=== PATIENT | male | born 1945 | race Caucasian/White ===

== ENCOUNTER 2018-01-17 17:00 | Emergency (ER) | payer OTHER ==
--- NOTE | 2018-01-17 17:50 | RAD REPORT ---
EXAM DESCRIPTION: CT - Head Brain Wo Cont - 01/17/2018 5:32 pm CLINICAL HISTORY: Syncope COMPARISON: January 2017 TECHNIQUE: Computed axial tomography of the head was obtained. IV contrast was not requested. All CT scans are performed using dose optimization technique as appropriate and may include automated exposure control or mA/KV adjustment according to patient size. FINDINGS: An intracranial bleed is not seen . The ventricles remain prominent. Cortical atrophy is seen. No extra-axial fluid collection is noted. Fluid within the sinuses/ mastoids is not seen. IMPRESSION: Prominence of the ventricles may be related to white matter atrophy. Normal pressure hyd rocephalus could also have this appearance should be correlated clinically.
[2018-01-17 17:51] LABS: Protime INR 0.98
--- NOTE | 2018-01-17 17:51 | RAD REPORT ---
EXAM DESCRIPTION: Rosita Single View01/17/2018 5:43 pm CLINICAL HISTORY: Chest pain COMPARISON: January 2017 FINDINGS: The lungs appear clear of acute infiltrate. The heart is normal size IMPRESSION: No acute abnormalities displayed
[2018-01-17 17:59] LABS: Bicarbonate 23 mEq/L (21-31); Glucose Level 98 mg/dL (65-120); Potassium 3.7 mEq/L (3.6-5.0); Sodium Level 136 mEq/L (135-145)
[2018-01-17 18:05] LABS: ALT/SGPT 71 IU/L (10-60); AST/SGOT 84 IU/L (10-42); Albumin 4.4 g/dL (3.2-5.5); Alkaline Phosphatase 69 IU/L (42-121); BUN Blood Urea Nitrogen 16 mg/dL (6-20); Bilirubin Direct 0.3 mg/dL (0-0.2); Bilirubin Total 1.1 mg/dL (0.3-1.2); Creatine Phosphokinase 374 IU/L (22-269); Magnesium 1.9 mg/dL (1.8-2.5)
[2018-01-17 18:15] LABS: Absolute Lymphocytes (CBC) 1.2 K/uL (0.7-4.9); Absolute Monocytes 0.4 K/uL (0.1-1.3); Absolute Neutrophil 2.8 K/uL (1.8-8.0); Basophils % 1.3 % (0-1.3); Eosinophils % 2.3 % (0-4.4); Hematocrit 45.6 % (39.6-49.0); Lymphocytes % 26.8 % (15.3-44.8); MCH 31.4 pg (27.0-35.0); MCV 91.5 fL (80-100); MPV 8.3 fL (7.6-11.3); Monocytes % 8.2 % (3.3-12.3); RBC Red Blood Cell Count 4.99 M/uL (4.33-5.43)
[2018-01-17 18:18] LABS: Alcohol Serum/Plasma 171 mg/dl
[2018-01-17] MEDS ORDERED: NA CHLORIDE 0.9% 1,000 ML ONE (18:30)
--- NOTE | 2018-01-17 19:02 | EDPHYS ---
Physician Documentation [facility] Name: Jasson Craig Jr Age: 72 yrs Sex: Male : 1945 Arrival Date: 01/17/2018 Time: 17:03 Bed 5 Private MD: ED Physician James Langston HPI: 01/17 17:22 This 72 yrs old Male presents to ER via EMS with complaints of Fall Injury. jr8 17:22 Details of fall: The patient fell from an upright position, while standing. Onset: The jr8 symptoms/episode began/occurred acutely, today. Associated injuries: The patient sustained injury to the head. Severity of symptoms: At their worst the symptoms were moderate, in the emergency department the symptoms have resolved. The patient has not experienced similar symptoms in the past. The patient has not recently seen a physician. Nursing staff here stated that patient had told EMS that he had not eaten today. Had a couple of glasses of wine for lunch. Had gone to [employer] for something and on the way out passed out. Patient stated that all he remembers is walking out. Next thing he knew he was on the ground. Denies any s/s prior to syncope. Denies any pain or any other s/s now in ED . Historical: - Allergies: 17:14 No Known Drug Allergies; jl7 - Home Meds: 17:14 None [Active]; jl7 - PMHx: 17:14 None; jl7 - PSHx: 17:14 None; jl7 - Immunization history:: Adult Immunizations up to date, Last tetanus immunization: > 10 years ago. - Social history:: Smoking status: Patient/guardian denies using tobacco. - Ebola Screening: : No symptoms or risks identified at this time. ROS: 17:22 Eyes: Negative for injury, pain, redness, and discharge, ENT: Negative for injury, jr8 pain, and discharge, Neck: Negative for injury, pain, and swelling, Cardiovascular: Negative for chest pain, palpitations, and edema, Respiratory: Negative for shortness of breath, cough, wheezing, and pleuritic chest pain, Abdomen/GI: Negative for abdominal pain, nausea, vomiting, diarrhea, and constipation, Back: Negative for injury and pain, MS/Extremity: Negative for injury and deformity, Skin: Negative for injury, rash, and discoloration. 17:22 Neuro: Positive for syncope, Negative for altered mental status, dizziness, gait disturbance, headache, hearing loss, numbness, seizure activity, speech changes, tingling, tinnitus, tremor, visual changes, weakness. Exam: 17:22 Eyes: Pupils equal round and reactive to light, extra-ocular motions intact. Lids and jr8 lashes normal. Conjunctiva and sclera are non-icteric and not injected. Cornea within normal limits. Periorbital areas with no swelling, redness, or edema. ENT: Nares patent. No nasal discharge, no septal abnormalities noted. Tympanic membranes are normal and external auditory canals are clear. Oropharynx with no redness, swelling, or masses, exudates, or evidence of obstruction, uvula midline. Mucous membranes moist. Neck: Trachea midline, no thyromegaly or masses palpated, and no cervical lymphadenopathy. Supple, full range of motion without nuchal rigidity, or vertebral point tenderness. No Meningismus. Chest/axilla: Normal chest wall appearance and motion. Nontender with no deformity. No lesions are appreciated. Cardiovascular: Regular rate and rhythm with a normal S1 and S2. No gallops, murmurs, or rubs. Normal PMI, no JVD. No pulse deficits. Respiratory: Lungs have equal breath sounds bilaterally, clear to auscultation and percussion. No rales, rhonchi or wheezes noted. No increased work of breathing, no retractions or nasal flaring. Abdomen/GI: Soft, non-tender, with normal bowel sounds. No distension or tympany. No guarding or rebound. No evidence of tenderness throughout. Back: No spinal tenderness. No costovertebral tenderness. Full range of motion. Skin: Warm, dry with normal turgor. Normal color with no rashes, no lesions, and no evidence of cellulitis. MS/ Extremity: Pulses equal, no cyanosis. Neurovascular intact. Full, normal range of motion. Neuro: Awake and alert, GCS 15, oriented to person, place, time, and situation. Cranial nerves II-XII grossly intact. Motor strength 5/5 in all extremities. Sensory grossly intact. Cerebellar exam normal. Normal gait. 17:22 Head/face: Noted is abrasion(s), that are mild, of the back of scalp. Vital Signs: 17:10 BP 143 / 109; Pulse 85; Resp 18 S; Pulse Ox 98% on R/A; Weight 88.9 kg (R); Height 6 jl7 ft. 0 in. (182.88 cm) (R); Pain 4/10; 17:57 BP 124 / 85; Pulse 81; Resp 17; Pulse Ox 97% on R/A; tw2 17:10 Body Mass Index 26.58 (88.90 kg, 182.88 cm) jl7 MDM: 17:10 Patient medically screened. jr8 19:00 Data reviewed: vital signs, nurses notes, lab test result(s), EKG, radiologic studies, jr8 CT scan, plain films, and as a result, I will discharge patient. Data interpreted: Pulse oximetry: on room air is 97 %. Interpretation: normal. Counseling: I had a detailed discussion with the patient and/or guardian regarding: the historical points, exam findings, and any diagnostic results supporting the discharge/admit diagnosis, lab results, radiology results, the need for outpatient follow up, a family practitioner, to return to the emergency department if symptoms worsen or persist or if there are any questions or concerns that arise at home. ED course: Patient has remained stable while in ED. No AMS. Feels back to normal. More then likely combination of alcohol and not eating. here to pick him up. To come back if worse . 01/17 17:21 Order name: Basic Metabolic Panel; Complete Time: 18:21 01/17 17:21 Order name: BNP; Complete Time: 18:08 01/17 17:21 Order name: CBC with Diff; Complete Time: 18:38 01/17 17:21 Order name: LFT's; Complete Time: 18:21 01/17 17:21 Order name: Magnesium; Complete Time: 18:21 01/17 17:21 Order name: PT-INR; Complete Time: 18:08 01/17 17:21 Order name: Ptt, Activated; Complete Time: 18:08 01/17 17:21 Order name: Troponin (emerg Dept Use Only); Complete Time: 18:08 01/17 17:21 Order name: XRAY Chest (1 view); Complete Time: 17:56 01/17 17:21 Order name: ETOH Level; Complete Time: 18:21 01/17 17:21 Order name: CPK; Complete Time: 18:21 [facility] 01/17 17:21 Order name: CT Head Brain wo Cont; Complete Time: 17:56 [facility] 01/17 18:28 Order name: Urine Dipstick--Ancillary (enter results); Complete Time: 21:14 01/17 17:21 Order name: EKG; Complete Time: 17:22 [facility] 01/17 17:21 Order name: Cardiac monitoring; Complete Time: 17:27 [facility] 01/17 17:21 Order name: EKG - Nurse/Tech; Complete Time: 17:27 [facility] 01/17 17:21 Order name: IV Saline Lock; Complete Time: 17:34 [facility] 01/17 17:21 Order name: Labs collected and sent; Complete Time: 17:34 [facility] 01/17 17:21 Order name: O2 Per Protocol; Complete Time: 17:27 [facility] 01/17 17:21 Order name: O2 Sat Monitoring; Complete Time: 17: Administered Medications: 18:30 Drug: NS 0.9% 1000 ml Route: IV; Rate: 1000 ml; Site: right antecubital; tw2 Point of Care Testing: Blood Glucose: 17:17 Blood Glucose: 68 mg/dL; jb1 Ranges: Critical Glucose Levels:Adult <50 mg/dl or >400 mg/dl <40 mg/dl or >180 mg/dl Disposition: 01/17/18 19:02 Discharged to Home. Impression: Syncope and collapse, Alcohol use, unspecified with intoxication. - Condition is Stable. - Discharge Instructions: Syncope. - Medication Reconciliation Form, Thank You Letter, Antibiotic Education, Prescription Opioid Use form. - Follow up: Private Physician; When: 2 - 3 days; Reason: Recheck today's complaints, Continuance of care, Re-evaluation by your physician. - Problem is new. - Symptoms have improved. Addendum: 01/22/2018 11:15 Co-signature as Attending Physician, James Langston MD. r n Signatures: Dispatcher [employer] EDJames Márquez MD MD rn Roszak, Josh, PA PA jr8 Fawn Thompson RN RN ak1 Aleyda Lane RN RN tw2 Libra Grant RN RN jl7 Corrections: (The following items were deleted from the chart) 01/17 19:23 19:02 01/17/2018 19:02 Discharged to Home. Impression: Syncope and collapse; Alcohol ak1 use, unspecified with intoxication. Condition is Stable. Forms are Medication Reconciliation Form, Thank You Letter, Antibiotic Education, Prescription Opioid Use. Follow up: Private Physician; When: 2 - 3 days; Reason: Recheck today's complaints, Continuance of care, Re-evaluation by your physician. Problem is new. Symptoms have improved. jr8
--- NOTE | 2018-01-17 19:02 | ER ---
Nurse's Notes [facility] Name: Jasson Craig Jr Age: 72 yrs Sex: Male : 1945 Arrival Date: 01/17/2018 Time: 17:03 Bed 5 Private MD: Diagnosis: Syncope and collapse;Alcohol use, unspecified with intoxication Presentation: 01/17 17:04 Presenting complaint: EMS states: Pt fell in [employer] parking lot, pt does not remember jl7 what made him fall, pt does not remember going back into [employer]. Pt reported having a couple glasses of wine at lunch but he hasn't had anything to eat. came to the scene and reported pt is at baseline. Care prior to arrival: None. Mechanism of Injury: Fall from standing position. Trauma event details: Injury occurred in the [facility], Injury occurred: in a public building. Injury occurred: January 17, 2018 Injury occurred at: 16:30. 17:04 Acuity: SERVANDO 3 jl7 17:04 Method Of Arrival: EMS: [facility] jl7 17:15 Transition of care: patient was not received from another setting of care. Onset of jl7 symptoms was January 17, 2018. Risk Assessment: Do you want to hurt yourself or someone else? Patient reports no desire to harm self or others. Initial Sepsis Screen: Does the patient meet any 2 criteria? No. Patient's initial sepsis screen is negative. Does the patient have a suspected source of infection? No. Patient's initial sepsis screen is negative. Trauma Activation: Not Applicable Physician: ED Physician; Name: ; Notified At: ; Arrived At: Physician: General Surgeon; Name: ; Notified At: ; Arrived At: Physician: Radiology; Name: ; Notified At: ; Arrived At: Physician: Respiratory; Name: ; Notified At: ; Arrived At: Physician: Lab; Name: ; Notified At: ; Arrived At: Historical: - Allergies: 17:14 No Known Drug Allergies; jl7 - Home Meds: 17:14 None [Active]; jl7 - PMHx: 17:14 None; jl7 - PSHx: 17:14 None; jl7 - Immunization history:: Adult Immunizations up to date, Last tetanus immunization: > 10 years ago. - Social history:: Smoking status: Patient/guardian denies using tobacco. - Ebola Screening: : No symptoms or risks identified at this time. Screenin:19 Abuse screen: Denies threats or abuse. Denies injuries from another. Nutritional jl7 screening: No deficits noted. Tuberculosis screening: No symptoms or risk factors identified. Fall Risk Fall in past 12 months (25 points). IV access (20 points). Total Luis Fall Scale indicates High Risk Score (45 or more points). Fall prevention measures have been instituted. Side Rails Up X 2 Placed Close to Nursing Station Frequent Obs/Assessments Occuring Family Present and informed to notify staff if the need to leave the bedside As available patient and family educated on Fall Prevention Program and Strategies. Assessment: 17:04 General: Appears in no apparent distress. uncomfortable, Behavior is cooperative, jl7 crying. Pain: Complains of pain in scalp Pain does not radiate. Pain currently is 4 out of 10 on a pain scale. Is continuous. Neuro: Level of Consciousness is awake, alert, obeys commands, Oriented to person, place, time, situation, Appropriate for age. EENT: No signs and/or symptoms were reported regarding the EENT system. Cardiovascular: Patient's skin is warm and dry. Respiratory: Airway is patent Respiratory effort is even, unlabored, Respiratory pattern is regular, symmetrical. GI: No signs and/or symptoms were reported involving the gastrointestinal system. : No signs and/or symptoms were reported regarding the genitourinary system. Derm: Skin is pink, warm \T\ dry. Musculoskeletal: No signs and/or symptoms reported regarding the musculoskeletal system. Injury Description: Laceration sustained to scalp is contaminated, superficial, 0.5 to 2.5 cm long, was sustained 30-60 minutes ago. a small amount of bleeding noted at this time. 19:23 Reassessment: Patient appears in no apparent distress at this time. pt A\T\OX4 with ak1 steady gait at discharge. pt called his to pick him up. Vital Signs: 17:10 BP 143 / 109; Pulse 85; Resp 18 S; Pulse Ox 98% on R/A; Weight 88.9 kg (R); Height 6 jl7 ft. 0 in. (182.88 cm) (R); Pain 4/10; 17:57 BP 124 / 85; Pulse 81; Resp 17; Pulse Ox 97% on R/A; tw2 17:10 Body Mass Index 26.58 (88.90 kg, 182.88 cm) jl7 ED Course: 17:03 Patient arrived in ED. jl7 17:07 Triage completed. jl7 17:10 Ezequiel Forman PA is PHCP. jr8 17:10 James Langston MD is Attending Physician. jr8 17:10 Arm band placed on right wrist. jl7 17:19 Patient has correct armband on for positive identification. Placed in gown. Bed in low jl7 position. Call light in reach. Side rails up X 1. personnel monitor on. Pulse ox on. NIBP on. Warm blanket given. 17:[address] 2 17:32 CT completed. Patient tolerated procedure well. Patient moved back from CT. 2 17:33 CT Head Brain wo Cont In Process Unspecified. EDMS 17:33 Libra Grant RN is Primary Nurse. jl7 17:40 EKG done, by information technology account manager. reviewed by Ezequiel BENÍTEZ. 3 17:43 X-ray completed. Patient tolerated procedure well. Patient moved back from radiology. 2 17:43 XRAY Chest (1 view) In Process Unspecified. EDMS Administered Medications: 18:30 Drug: NS 0.9% 1000 ml Route: IV; Rate: 1000 ml; Site: right antecubital; tw2 Point of Care Testing: Blood Glucose: 17:17 Blood Glucose: 68 mg/dL; jb1 Ranges: Outcome: 19:02 Discharge ordered by . jr8 19:22 Discharged to home ambulatory, with family. ak1 19:22 Condition: good 19:22 Discharge instructions given to patient, family, Instructed on discharge instructions, follow up and referral plans. Demonstrated understanding of instructions, follow-up care. 19:23 Patient left the ED. ak1 Signatures: Dispatcher [employer] EDMS Nithin Orozco jb1 Ezequiel Forman PA PA jr8 Fawn Thompson RN RN ak1 Aleyda Lane RN RN tw2 Libra Grant RN RN jl7 Melissa Grewal 2 Rayne Bhat bb2 Jennifer Vera 3 Corrections: (The following items were deleted from the chart) 17:19 17:04 Presenting complaint: EMS states: Pt fell in [employer] parking lot, pt does not jl7 remember what made him fall, pt does not remember going back into [employer]. jl7
[2018-01-17 19:19] LABS: Urine Blood NEGATIVE (NEG); Urine Glucose NEGATIVE (NEG); Urine Protein NEGATIVE (NEG); Urine pH 5.5 (5.0-7.0)
--- NOTE | 2018-01-18 06:16 | EKG ---
Test Date: 2018-01-17 Test Time: 17:12:05 Binder Caser: [place] MEASUREMENT RESULTS: Intervals: Rate: 82 MS: 170 QRSD: 94 QT: 378 QTc: 441 [place]: P: 45 MS: 170 QRS: -51 T: 24 INTERPRETIVE STATEMENTS: Normal sinus rhythm Left anterior fascicular block Abnormal ECG Compared to ECG 01/18/2017 08:45:43 Left anterior fascicular block now present Ventricular premature complex(es) no longer present Left-axis deviation no longer present Electronically Signed On 01-18-18 06:15:28 CDT by Celestino Blanco
== END 2018-01-17 19:23 | disposition home or self-care (01) ==
LOC: ER 17:00
DX: F10.929 Alcohol use, unspecified with intoxication, unspecified (principal); W18.39XA Other fall on same level, initial encounter; Y93.89 Activity, other specified; Y92.9 Unspecified place or not applicable
CPT/HCPCS: 36415; 70450; 71045; 80048; 80076; 80320; 81003; 82550; 82962; 83735; 83880; 84484; 85025; 85610; 85730; 93005; 99285; J7030

== ENCOUNTER 2023-03-16 17:57 | Emergency (ER) | payer OTHER ==
--- OUTSIDE RECORDS SUMMARY | 2023-03-16 18:02 | XMS REPORT | Continuity of Care Document ---
:1945 Author Organization [facility] t Address [address] [place] [address] [address] [place] [address] Care Team Providers Name Role Phone Massiel Umaña MD Primary Care Physician [phone] MASSIEL UMAÑA Attending Clinician Unavailable Massiel Umaña MD Attending Clinician Doctor Unassigned, [place] Attending Clinician Unavailable Lab, Ang - Db Attending Clinician Unavailable Gramm COMPLIANCE ATTORNEY, Ariadna A Attending Clinician GRAMM ARIADNA A Attending Clinician Unavailable Pob, Adc Lab Main Attending Clinician Unavailable Abiel Carson MD Attending Clinician ABIEL CARSON Attending Clinician Unavailable SHIRLENE PARKER Attending Clinician Unavailable Shirlene Parker MD Attending Clinician Room, [facility] Uro Procedure Attending Clinician Unavailable Toma Quintanilla RN Attending Clinician Unavailable APOLLO RAMIREZ Attending Clinician Unavailable Yumiko Matthews Attending Clinician Compa Qureshi MD Attending Clinician Apollo Ramirez DO Attending Clinician Lab, Adc Fam Pob I Attending Clinician Unavailable QUOC ROBERTSON Attending Clinician Unavailable 2, Adc Lab Attending Clinician Unavailable COMPA QURESHI Admitting Clinician Unavailable Compa Qureshi MD Admitting Clinician Payers Payer Name Policy Type Policy Number Effective Date Expiration Date S ource [facility] [id number] 2020 [facility] [place] 00:00:00 PPO Problems Condition Condition Condition Status Onset Resolution Last Treating Co mments Source Name Details Category Date Date Treatment Clinician Date PVC PVC Disease Active Univers (premature (premature 5-21 [place] [facility] contractio contractio Br anch n) n) 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 Moderate 5-21 ity of protein protein 00:00: [place] calorie calorie 00 Medical malnutriti malnutriti Br anch on on PVC PVC Disease Active Univers (premature (premature 5-21 [place] contractio contractio Br anch n) n) NSVT NSVT Disease Active Univers (nonsustai (nonsustai 5-21 it y of [place] 00:00: [place] ventricula ventricula 00 Nm dical r r Branch tachycardi tachycardi a) a) Hypokalemi Hypokalemi Disease Active U nivers a a 5-21 ity of 00:00: [place] 00 Medical Branch UTI UTI Disease Active Univers (urinary (urinary 5-21 ity of tract tract 00:00: [place] infection) infection) 00 Nm dical Branch STARLA (acute STARLA (acute Disease Active U nivers kidney kidney 5-20 ity of injury) injury) 00:00: [place] 00 Medical Branch Allergies, Adverse Reactions, Alerts Allergy Allergy Status Severity Reaction(s) Onset Inactive Treating Comm ents Source Name Type Date Date Clinician NO KNOWN Drug Active Univers ALLERGIE Class ity of S [facility] Social History Social Habit Start Date Stop Date Quantity Comments Source Gender identity Universit y of [facility] Sexual orientation Univer sity [facility] History of Social 2023-03-12 2023-03-12 Univers ity of function 00:00:00 00:00:00 [facility] Tobacco use and 2023-03-12 2023-03-12 Smokeless Universit y of exposure 00:00:00 00:00:00 tobacco [facility]user [facility] intake 2023-03-12 2023-03-12 2 /d University 00:00:00 00:00:00 [facility] Exposure to 2022-12-01 2022-12-11 Not sure [facility] SARS-CoV-2 (event) 00:00:00 14:53:00 [facility] Sex [birth year] Universit y of 00:00:00 00:00:00 [facility] Smoking Status Start Date Stop Date Source Never smoked tobacco [facility] Medications Ordered Filled Start Stop Current Ordering Indication Dosage Frequency Signature Comments Components Source Medication Medication Date Date Medication? Clinician (SIG) Name Name MEMANTINE 5 2022-0 Yes [id number] TAKE ONE Univers mg tablet 7-26 TABLET BY ity o f 00:00: MOUTH [place] TWICE A Medical DAY Branch DONEPEZIL 2022-0 Yes [id number] TAKE ONE Univers 10 mg 7-26 TABLET BY ity of tablet 00:00: MOUTH AT [place] [facility] Medical Branch MEMANTINE 5 2022-0 Yes [id number] TAKE ONE Univers mg tablet 7-26 TABLET BY ity o f 00:00: MOUTH [place] TWICE A Medical DAY Branch DONEPEZIL 2022-0 Yes [id number] TAKE ONE Univers 10 mg 7-26 TABLET BY ity of tablet 00:00: MOUTH AT [place] [facility] Medical Branch MEMANTINE 5 2022-0 Yes [id number] TAKE ONE Univers mg tablet 7-26 TABLET BY ity o f 00:00: MOUTH [place] TWICE A Medical DAY Branch DONEPEZIL 2022-0 Yes [id number] TAKE ONE Univers 10 mg 7-26 TABLET BY ity of tablet 00:00: MOUTH AT [place] [facility] Medical Branch MEMANTINE 5 2022-0 Yes [id number] TAKE ONE Univers mg tablet 7-26 TABLET BY ity o f 00:00: MOUTH [place] [address] TWICE A Medical DAY Branch DONEPEZIL 2022-0 Yes [id number] TAKE ONE Univers 10 mg 7-26 TABLET BY ity of tablet 00:00: MOUTH AT [address] Medical Branch mirtazapine 2022-0 Yes [id number] 15mg Take 1 Univers 15 mg 7-14 tablet by ity of tablet 00:00: mouth at [place] [address] bedtime. Medical Branch mirtazapine 2022-0 Yes [id number] 15mg Take 1 Univers 15 mg 7-14 tablet by ity of tablet 00:00: mouth at [place] [address] bedtime. Medical Branch mirtazapine 2022-0 Yes [id number] 15mg Take 1 Univers 15 mg 7-14 tablet by ity of tablet 00:00: mouth at [place] [address] bedtime. Medical Branch mirtazapine 2022-0 Yes [id number] 15mg Take 1 Univers 15 mg 7-14 tablet by ity of tablet 00:00: mouth at [place] [address] bedtime. Medical Branch mirtazapine 2022-0 Yes [id number] 15mg Take 1 Univers 15 mg 7-14 tablet by ity of tablet 00:00: mouth at [place] [address] bedtime. Medical Branch MIRTAZAPINE 2022-0 Yes [id number] TAKE ONE Univers 15 mg 6-27 TABLET BY ity of tablet 00:00: MOUTH AT [address] Medical Branch DONEPEZIL 2022-0 Yes [id number] TAKE ONE Univers 10 mg 6-27 TABLET BY ity of tablet 00:00: MOUTH AT [address] Medical Branch MEMANTINE 5 2022-0 Yes [id number] TAKE ONE Univers mg tablet 6-27 TABLET BY ity o f 00:00: MOUTH [place] [address] TWICE A Medical DAY Branch DONEPEZIL 2022-0 Yes [id number] TAKE ONE Univers 10 mg 6-27 TABLET BY ity of tablet 00:00: MOUTH AT [address] Medical Branch MEMANTINE 5 2022-0 Yes [id number] TAKE ONE Univers mg tablet 6-27 TABLET BY ity o f 00:00: MOUTH [place] [address] TWICE A Medical DAY Branch DONEPEZIL 3-0 3- No [id number] TAKE ONE Univers 10 mg 6-27 07-26 TABLET BY ity of tablet 00:00: 00:00 MOUTH AT [place] 00 :00 BEDTIME Medical Branch MEMANTINE 5 3-0 3- No [id number] TAKE ONE Univers mg tablet 6-27 07-26 TABLET BY ity of 00:00: 00:00 MOUTH [place] 00 :00 TWICE A Medical DAY Branch MIRTAZAPINE 2023-0 3- No [id number] TAKE ONE Univers 15 mg 6-27 07-14 TABLET BY ity of tablet 00:00: 00:00 MOUTH AT [place] 00 :00 BEDTIME Medical Branch MIRTAZAPINE 2022-0 Yes [id number] TAKE ONE Univers 15 mg 5-29 TABLET BY ity of tablet 00:00: MOUTH AT [place] 00 BEDTIME Medical Branch DONEPEZIL 0 Yes [id number] TAKE ONE Univers 10 mg 5-29 TABLET BY ity of tablet 00:00: MOUTH AT [place] 00 BEDTIME Medical Branch MEMANTINE 5 2022-0 Yes [id number] TAKE ONE Univers mg tablet 5-29 TABLET BY ity o f 00:00: MOUTH [place] 00 TWICE A Medical DAY Branch MIRTAZAPINE 2022-0 2022- No [id number] TAKE ONE Univers 15 mg 5-29 06-27 TABLET BY ity of tablet 00:00: 00:00 MOUTH AT [place] 00 :00 BEDTIME Medical Branch DONEPEZIL 2022-0 2022- No [id number] TAKE ONE Univers 10 mg 5-29 06-27 TABLET BY ity of tablet 00:00: 00:00 MOUTH AT [place] 00 :00 BEDTIME Medical Branch MEMANTINE 5 2022-0 2022- No [id number] TAKE ONE Univers mg tablet 5-29 -27 TABLET BY ity of 00:00: 00:00 MOUTH [place] 00 :00 TWICE A Medical DAY Branch albuterol Yes [id number] 2{puff} Inhale 2 Univers 90 5-08 Puffs ity of mcg/actuati 00:00: every 6 [place] on inhaler 00 (six) Medical hours as Branch needed for Wheezing, Shortness of Breath or Bronchospa sm. albuterol Yes [id number] 2{puff} Inhale 2 Univers 90 5-08 Puffs ity of mcg/actuati 00:00: every 6 [place] on inhaler 00 (six) Medical hours as Branch needed for Wheezing, Shortness of Breath or Bronchospa sm. albuterol Yes [id number] 2{puff} Inhale 2 Univers 90 5-08 Puffs ity of mcg/actuati 00:00: every 6 [place] on inhaler 00 (six) Medical hours as Branch needed for Wheezing, Shortness of Breath or Bronchospa sm. albuterol Yes [id number] 2{puff} Inhale 2 Univers 90 5-08 Puffs ity of mcg/actuati 00:00: every 6 [place] on inhaler 00 (six) Medical hours as Branch needed for Wheezing, Shortness of Breath or Bronchospa sm. albuterol Yes [id number] 2{puff} Inhale 2 Univers 90 5-08 Puffs ity of mcg/actuati 00:00: every 6 [place] on inhaler 00 (six) Medical hours as Branch needed for Wheezing, Shortness of Breath or Bronchospa sm. albuterol Yes [id number] 2{puff} Inhale 2 Univers 90 5-08 Puffs ity of mcg/actuati 00:00: every 6 [place] on inhaler 00 (six) Medical hours as Branch needed for Wheezing, Shortness of Breath or Bronchospa sm. albuterol Yes [id number] 2{puff} Inhale 2 Univers 90 5-08 Puffs ity of mcg/actuati 00:00: every 6 [place] on inhaler 00 (six) Medical hours as Branch needed for Wheezing, Shortness of Breath or Bronchospa sm. albuterol Yes [id number] 2{puff} Inhale 2 Univers 90 5-08 Puffs ity of mcg/actuati 00:00: every 6 [place] on inhaler 00 (six) Medical hours as Branch needed for Wheezing, Shortness of Breath or Bronchospa sm. albuterol Yes [id number] 2{puff} Inhale 2 Univers 90 5-08 Puffs ity of mcg/actuati 00:00: every 6 [place] on inhaler 00 (six) Medical hours as Branch needed for Wheezing, Shortness of Breath or Bronchospa sm. MEMANTINE 5 2022-0 Yes [id number] TAKE ONE Univers mg tablet 5-01 TABLET BY ity o f 00:00: MOUTH [place] TWICE A Medical DAY Branch MIRTAZAPINE 2022-0 Yes [id number] TAKE ONE Univers 15 mg 5-01 TABLET BY ity of tablet 00:00: MOUTH AT [place] BEDTIME Medical Branch DONEPEZIL 2022-0 Yes [id number] TAKE ONE Univers 10 mg 5-01 TABLET BY ity of tablet 00:00: MOUTH AT [place] BEDTIME Medical Branch MEMANTINE 5 2022-0 Yes [id number] TAKE ONE Univers mg tablet 5-01 TABLET BY ity o f 00:00: MOUTH [place] TWICE A Medical DAY Branch MIRTAZAPINE 2022-0 Yes [id number] TAKE ONE Univers 15 mg 5-01 TABLET BY ity of tablet 00:00: MOUTH AT [address] Medical Branch DONEPEZIL 2022-0 Yes [id number] TAKE ONE Univers 10 mg 5-01 TABLET BY ity of tablet 00:00: MOUTH AT [place] [facility] Medical Branch MEMANTINE 5 2022-0 Yes [id number] TAKE ONE Univers mg tablet 5-01 TABLET BY ity o f 00:00: MOUTH [place] [address] TWICE A Medical DAY Branch MIRTAZAPINE 2022-0 Yes [id number] TAKE ONE Univers 15 mg 5-01 TABLET BY ity of tablet 00:00: MOUTH [address] Branch DONEPEZIL 2022-0 Yes [id number] TAKE ONE Univers 10 mg 5-01 TABLET BY ity of tablet 00:00: MOUTH AT [address] Medical Branch MEMANTINE 5 2022-0 Yes [id number] TAKE ONE Univers mg tablet 5-01 TABLET BY ity o f 00:00: MOUTH [place] [address] TWICE A Medical DAY Branch MIRTAZAPINE 2022-0 Yes [id number] TAKE ONE Univers 15 mg 5-01 TABLET BY ity of tablet 00:00: MOUTH AT [address] Medical Branch DONEPEZIL 2022-0 Yes [id number] TAKE ONE Univers 10 mg 5-01 TABLET BY ity of tablet 00:00: MOUTH AT [address] Medical Branch MEMANTINE 5 2022-0 2023- No [id number] TAKE ONE Univers mg tablet 5-01 05-29 TABLET BY ity of 00:00: 00:00 MOUTH [place] 00 :00 TWICE A Medical DAY Branch MIRTAZAPINE 2023-0 3- No [id number] TAKE ONE Univers 15 mg 5-01 05-29 TABLET BY ity of tablet 00:00: 00:00 MOUTH AT [place] 00 :00 BEDTIME Medical Branch DONEPEZIL 3-0 3- No [id number] TAKE ONE Univers 10 mg 5-01 05-29 TABLET BY ity of tablet 00:00: 00:00 MOUTH AT [place] 00 :00 BEDTIME Medical Branch memantine 5 2022-0 Yes [id number] TAKE ONE Univers mg tablet 4-04 TABLET BY ity o f 00:00: MOUTH [place] [address] TWICE A Medical DAY Branch memantine 5 2022-0 Yes [id number] TAKE ONE Univers mg tablet 4-04 TABLET BY ity o f 00:00: MOUTH [place] [address] TWICE A Medical DAY Branch MIRTAZAPINE 3-0 Yes [id number] TAKE ONE Univers 15 mg 4-04 TABLET BY ity of tablet 00:00: MOUTH AT [address] Medical Branch DONEPEZIL 3-0 Yes [id number] TAKE ONE Univers 10 mg 4-04 TABLET BY ity of tablet 00:00: MOUTH AT [address] Medical Branch memantine 5 2022-0 3- No [id number] TAKE ONE Univers mg tablet 4-04 05-01 TABLET BY ity of 00:00: 00:00 MOUTH [place] 00 :00 TWICE A Medical DAY Branch MIRTAZAPINE 3-0 3- No [id number] TAKE ONE Univers 15 mg 4-04 05-01 TABLET BY ity of tablet 00:00: 00:00 MOUTH AT [place] 00 :00 [facility] Branch DONEPEZIL 2022-0 2022- No [id number] TAKE ONE Univers 10 mg 4-04 05-01 TABLET BY ity of tablet 00:00: 00:00 MOUTH AT [place] 00 :00 [facility] Branch amLODIPine 3-0 Yes Univers 2.5 mg 3-23 ity of tablet 00:00: [place] [address] Medical Branch amLODIPine 2023-0 Yes Univers 2.5 mg 3-23 ity of tablet 00:00: [place] [address] Medical Branch amLODIPine 3-0 Yes Univers 2.5 mg 3-23 ity of tablet 00:00: [place] [address] Medical Branch amLODIPine 2023-0 Yes Univers 2.5 mg 3-23 ity of tablet 00:00: [place] [address] Medical Branch amLODIPine 2023-0 Yes Univers 2.5 mg 3-23 ity of tablet 00:00: [place] [address] Medical Branch amLODIPine 2023-0 Yes Univers 2.5 mg 3-23 ity of tablet 00:00: [place] [address] Medical Branch amLODIPine 2023-0 Yes Univers 2.5 mg 3-23 ity of tablet 00:00: [place] [address] Medical Branch amLODIPine 2023-0 Yes Univers 2.5 mg 3-23 ity of tablet 00:00: [place] [address] Medical Branch amLODIPine 2023-0 Yes Univers 2.5 mg 3-23 ity of tablet 00:00: [place] [address] Medical Branch DONEPEZIL 3-0 Yes [id number] TAKE ONE Univers 10 mg 3-06 TABLET BY ity of tablet 00:00: MOUTH AT [place] 00 BEDTIME Medical Branch MIRTAZAPINE 3-0 Yes [id number] TAKE ONE Univers 15 mg 3-06 TABLET BY ity of tablet 00:00: MOUTH AT [place] 00 [facility] Branch DONEPEZIL 2022-0 Yes [id number] TAKE ONE Univers 10 mg 3-06 TABLET BY ity of tablet 00:00: MOUTH AT [place] 00 [facility] MIRTAZAPINE 2022-0 Yes [id number] TAKE ONE Univers 15 mg 3-06 TABLET BY ity of tablet 00:00: MOUTH AT [address] Branch DONEPEZIL 2022-0 3- No [id number] TAKE ONE Univers 10 mg 3-06 04-04 TABLET BY ity of tablet 00:00: 00:00 MOUTH AT [place] 00 :00 [facility] Branch MIRTAZAPINE 2022-0 2022- No [id number] TAKE ONE Univers 15 mg 3-06 04-04 TABLET BY ity of tablet 00:00: 00:00 MOUTH AT [place] 00 :00 [facility] MIRTAZAPINE 2022-0 Yes [id number] TAKE ONE Univers 15 mg 2-06 TABLET BY ity of tablet 00:00: MOUTH AT [address] DONEPEZIL 2022-0 Yes [id number] TAKE ONE Univers 10 mg 2-06 TABLET BY ity of tablet 00:00: MOUTH AT [address] MIRTAZAPINE 2022-0 2022- No [id number] TAKE ONE Univers 15 mg 2-06 03-06 TABLET BY ity of tablet 00:00: 00:00 MOUTH AT [place] 00 :00 [facility] Branch DONEPEZIL 3-0 3- No [id number] TAKE ONE Univers 10 mg 2-06 03-06 TABLET BY ity of tablet 00:00: 00:00 MOUTH AT [place] 00 :00 [facility] Branch DONEPEZIL 3-0 Yes [id number] TAKE ONE Univers 10 mg 1-10 TABLET BY ity of tablet 00:00: MOUTH AT [address] Branch MIRTAZAPINE 2022-0 Yes [id number] TAKE ONE Univers 15 mg 1-10 TABLET BY ity of tablet 00:00: MOUTH AT [address] DONEPEZIL 3-0 3- No [id number] TAKE ONE Univers 10 mg 1-10 02-06 TABLET BY ity of tablet 00:00: 00:00 M[facility]TH AT [place] 00 [facility] MIRTAZAPINE 2022-0 3- No [id number] TAKE ONE Univers 15 mg 1-10 02-06 TABLET BY ity of tablet 00:00: 00:00 MOUTH AT [place] 00 :[facility] MEMANTINE 5 2022-0 Yes [id number] TAKE ONE Univers mg tablet 1-04 TABLET BY ity o f 00:00: MOUTH [place] TWICE A Medical DAY Branch MEMANTINE 5 2022-0 Yes [id number] TAKE ONE Univers mg tablet 1-04 TABLET BY ity o f 00:00: MOUTH [place] TWICE A Medical DAY Branch MEMANTINE 5 2022-0 Yes [id number] TAKE ONE Univers mg tablet 1-04 TABLET BY ity o f 00:00: MOUTH [place] TWICE A Medical DAY Branch MEMANTINE 5 2022-0 Yes [id number] TAKE ONE Univers mg tablet 1-04 TABLET BY ity o f 00:00: MOUTH [place] TWICE A Medical DAY Branch MEMANTINE 5 2022-0 3- No [id number] TAKE ONE Univers mg tablet 1-04 04-04 TABLET BY ity of 00:00: 00:00 MOUTH [place] 00 :00 TWICE A Medical DAY Branch DONEPEZIL 2021-1 Yes [id number] TAKE ONE Univers 10 mg 2-14 TABLET BY ity of tablet 00:00: MOUTH AT [place] [facility] Medical Branch MIRTAZAPINE 2021- Yes [id number] TAKE ONE Univers 15 mg 2-14 TABLET BY ity of tablet 00:00: MOUTH AT [place] [facility] Medical Branch DONEPEZIL 2021-1 Yes [id number] TAKE ONE Univers 10 mg 2-14 TABLET BY ity of tablet 00:00: MOUTH AT [place] [facility] Medical Branch MIRTAZAPINE 2021-1 Yes [id number] TAKE ONE Univers 15 mg 2-14 TABLET BY ity of tablet 00:00: MOUTH AT [place] 00 [facility] Medical Branch DONEPEZIL 2021-1 3- No [id number] TAKE ONE Univers 10 mg 2-14 01-10 TABLET BY ity of tablet 00:00: 00:00 MOUTH AT [place] 00 :00 [facility] Medical Branch MIRTAZAPINE 2021-1 2023- No [id number] TAKE ONE Univers 15 mg 2-14 01-10 TABLET BY ity of tablet 00:00: 00:00 MOUTH AT [place] 00 :00 BEDTIME Medical Branch MIRTAZAPINE 2021-08 Yes [id number] TAKE ONE Univers 15 mg 1-17 TABLET BY ity of tablet 00:00: MOUTH AT [place] [facility] Branch DONEPEZIL 2021-08 Yes [id number] TAKE ONE Univers 10 mg 1-17 TABLET BY ity of tablet 00:00: MOUTH AT [place] [facility] MIRTAZAPINE 2021-08- No [id number] TAKE ONE Univers 15 mg 1-17 12-14 TABLET BY ity of tablet 00:00: 00:00 MOUTH AT [place] 00 :00 [facility] DONEPEZIL 2021-08- No [id number] TAKE ONE Univers 10 mg 1-17 12-14 TABLET BY ity of tablet 00:00: 00:00 MOUTH AT [place] 00 :00 [facility] DONEPEZIL 2021-08 Yes [id number] TAKE ONE Univers 10 mg 0-18 TABLET BY ity of tablet 00:00: MOUTH AT [address] MIRTAZAPINE 2021-08 Yes [id number] TAKE ONE Univers 15 mg 0-18 TABLET BY ity of tablet 00:00: MOUTH AT [address] DONEPEZIL 2021-08 Yes [id number] TAKE ONE Univers 10 mg 0-18 TABLET BY ity of tablet 00:00: MOUTH AT [address] MIRTAZAPINE 2021-08 Yes [id number] TAKE ONE Univers 15 mg 0-18 TABLET BY ity of tablet 00:00: MOUTH AT [address] DONEPEZIL 2021-08- No [id number] TAKE ONE Univers 10 mg 0-18 11-17 TABLET BY ity of tablet 00:00: 00:00 MOUTH AT [place] 00 :00 [facility] MIRTAZAPINE 2021-08- No [id number] TAKE ONE Univers 15 mg 0-18 11-17 TABLET BY ity of tablet 00:00: 00:00 MOUTH AT [place] 00 :00 [facility] Medical Branch MEMANTINE 5 2021-08 Yes [id number] TAKE ONE Univers mg tablet 0-10 TABLET BY ity o f 00:00: MOUTH [place] [address] TWICE A Medical DAY Branch MEMANTINE 5 2021- Yes [id number] TAKE ONE Univers mg tablet 0-10 TABLET BY ity o f 00:00: MOUTH [place] [address] TWICE A Medical DAY Branch MEMANTINE 5 2021-08 Yes [id number] TAKE ONE Univers mg tablet 0-10 TABLET BY ity o f 00:00: MOUTH [place] TWICE A Medical DAY Branch MEMANTINE 5 2021- Yes [id number] TAKE ONE Univers mg tablet 0-10 TABLET BY ity o f 00:00: MOUTH [place] TWICE A Medical DAY Branch MEMANTINE 5 2021- Yes [id number] TAKE ONE Univers mg tablet 0-10 TABLET BY ity o f 00:00: MOUTH [place] [address] TWICE A Medical DAY Branch MEMANTINE 5 2021-08- No [id number] TAKE ONE Univers mg tablet 0-10 01-04 TABLET BY ity of 00:00: 00:00 MOUTH [place] 00 :00 TWICE A Medical DAY Branch MIRTAZAPINE 2021-0 Yes [id number] TAKE ONE Univers 15 mg 9-20 TABLET BY ity of tablet 00:00: MOUTH AT [address] Medical Branch DONEPEZIL 2021-0 Yes [id number] TAKE ONE Univers 10 mg 9-20 TABLET BY ity of tablet 00:00: MOUTH AT [address] Branch MIRTAZAPINE 2021-0 Yes [id number] TAKE ONE Univers 15 mg 9-20 TABLET BY ity of tablet 00:00: MOUTH AT [place] [facility] Branch DONEPEZIL 2021-0 Yes [id number] TAKE ONE Univers 10 mg 9-20 TABLET BY ity of tablet 00:00: MOUTH AT [place] [facility] Medical Branch MIRTAZAPINE 2021-0 2021- No [id number] TAKE ONE Univers 15 mg 9-20 10-18 TABLET BY ity of tablet 00:00: 00:00 MOUTH AT [place] 00 :00 [facility] Medical Branch DONEPEZIL 2021-0 2021- No [id number] TAKE ONE Univers 10 mg 9-20 10-18 TABLET BY ity of tablet 00:00: 00:00 MOUTH AT [place] 00 :00 [facility] Medical Branch MIRTAZAPINE 2021-0 Yes [id number] TAKE ONE Univers 15 mg 8-23 TABLET BY ity of tablet 00:00: MOUTH AT [address] Medical Branch DONEPEZIL 2021-0 Yes [id number] TAKE ONE Univers 10 mg 8-23 TABLET BY ity of tablet 00:00: MOUTH AT [address] Medical Branch MIRTAZAPINE 2021-0 Yes [id number] TAKE ONE Univers 15 mg 8-23 TABLET BY ity of tablet 00:00: MOUTH AT [place] [facility] Branch DONEPEZIL 2021-0 Yes [id number] TAKE ONE Univers 10 mg 8-23 TABLET BY ity of tablet 00:00: MOUTH AT [place] [facility] Branch MIRTAZAPINE 2021-0 Yes [id number] TAKE ONE Univers 15 mg 8-23 TABLET BY ity of tablet 00:00: MOUTH AT [place] [facility] Branch DONEPEZIL 2021-0 Yes [id number] TAKE ONE Univers 10 mg 8-23 TABLET BY ity of tablet 00:00: MOUTH AT [place] [facility] MIRTAZAPINE 2021-0 Yes [id number] TAKE ONE Univers 15 mg 8-23 TABLET BY ity of tablet 00:00: MOUTH AT [place] [facility] DONEPEZIL 2021-0 Yes [id number] TAKE ONE Univers 10 mg 8-23 TABLET BY ity of tablet 00:00: MOUTH AT [place] [facility] MIRTAZAPINE 2021-0 2- No [id number] TAKE ONE Univers 15 mg 8-23 09-20 TABLET BY ity of tablet 00:00: 00:00 MOUTH AT [place] 00 :00 [facility] DONEPEZIL 2021-0 2- No [id number] TAKE ONE Univers 10 mg 8-23 09-20 TABLET BY ity of tablet 00:00: 00:00 MOUTH AT [place] 00 :00 [facility] DONEPEZIL 2021-0 Yes [id number] TAKE ONE Univers 10 mg 7-26 TABLET BY ity of tablet 00:00: MOUTH AT [place] [facility] MIRTAZAPINE 2021-0 Yes [id number] TAKE ONE Univers 15 mg 7-26 TABLET BY ity of tablet 00:00: MOUTH AT [address] DONEPEZIL 2021-0 Yes [id number] TAKE ONE Univers 10 mg 7-26 TABLET BY ity of tablet 00:00: MOUTH AT [address] MIRTAZAPINE 2021-0 Yes [id number] TAKE ONE Univers 15 mg 7-26 TABLET BY ity of tablet 00:00: MOUTH AT [address] Branch DONEPEZIL 2021-0 Yes [id number] TAKE ONE Univers 10 mg 7-26 TABLET BY ity of tablet 00:00: MOUTH AT [place] 00 BEDTIME Medical Branch MIRTAZAPINE 2021-0 Yes [id number] TAKE ONE Univers 15 mg 7-26 TABLET BY ity of tablet 00:00: MOUTH AT [place] 00 BEDTIME Medical Branch DONEPEZIL 2021-0 Yes [id number] TAKE ONE Univers 10 mg 7-26 TABLET BY ity of tablet 00:00: MOUTH AT [place] 00 BEDTIME Medical Branch MIRTAZAPINE 2021-0 Yes [id number] TAKE ONE Univers 15 mg 7-26 TABLET BY ity of tablet 00:00: MOUTH AT [place] 00 BEDTIME Medical Branch DONEPEZIL 2021-0 2- No [id number] TAKE ONE Univers 10 mg 7-26 08-23 TABLET BY ity of tablet 00:00: 00:00 MOUTH AT [place] 00 :00 BEDTIME Medical Branch MIRTAZAPINE 2021-0 2021- No [id number] TAKE ONE Univers 15 mg 7-26 08-23 TABLET BY ity of tablet 00:00: 00:00 MOUTH AT [place] 00 :00 BEDTIME Medical Branch MEMANTINE 5 2021-0 Yes [id number] TAKE ONE Univers mg tablet 7-14 TABLET BY ity o f 00:00: MOUTH TWICE A Medical DAY Branch MEMANTINE 5 2021-0 Yes [id number] TAKE ONE Univers mg tablet 7-14 TABLET BY ity o f 00:00: MOUTH TWICE A Medical DAY Branch MEMANTINE 5 2021-0 Yes [id number] TAKE ONE Univers mg tablet 7-14 TABLET BY ity o f 00:00: MOUTH TWICE A Medical DAY Branch MEMANTINE 5 2021-0 Yes [id number] TAKE ONE Univers mg tablet 7-14 TABLET BY ity o f 00:00: MOUTH TWICE A Medical DAY Branch MEMANTINE 5 2021-0 Yes [id number] TAKE ONE Univers mg tablet 7-14 TABLET BY ity o f 00:00: MOUTH TWICE A Medical DAY Branch MEMANTINE 5 2021-0 Yes [id number] TAKE ONE Univers mg tablet 7-14 TABLET BY ity o f 00:00: MOUTH TWICE A Medical DAY Branch MEMANTINE 5 2021-0 Yes [id number] TAKE ONE [facility] mg tablet 7-14 TABLET BY ity o f 00:00: MOUTH TWICE A Medical DAY Branch MEMANTINE 5 2021-0 Yes [id number] TAKE ONE [facility] mg tablet 7-14 TABLET BY ity o f 00:00: MOUTH TWICE A Medical DAY Branch MEMANTINE 5 2021-0 Yes [id number] TAKE ONE [facility] mg tablet 7-14 TABLET BY ity o f 00:00: MOUTH TWICE A Medical DAY Branch MEMANTINE 5 2021-0 Yes [id number] TAKE ONE [facility] mg tablet 7-14 TABLET BY ity o f 00:00: MOUTH TWICE A Medical DAY Branch MEMANTINE 5 2021-0 Yes [id number] TAKE ONE [facility] mg tablet 7-14 TABLET BY ity o f 00:00: MOUTH TWICE A Medical DAY Branch MEMANTINE 5 2021-0 Yes [id number] TAKE ONE [facility] mg tablet 7-14 TABLET BY ity o f 00:00: MOUTH TWICE A Medical DAY Branch MEMANTINE 5 2021-0 Yes [id number] TAKE ONE [facility] mg tablet 7-14 TABLET BY ity o f 00:00: MOUTH [place] TWICE A Medical DAY Branch MEMANTINE 5 2021-0 2- No [id number] TAKE ONE [facility] mg tablet 7-14 10-10 TABLET BY ity of 00:00: 00:00 MOUTH [place] 00 :00 TWICE A Medical DAY Branch MIRTAZAPINE 2-0 Yes [id number] TAKE ONE [facility] 15 mg 6-28 TABLET BY ity of tablet 00:00: MOUTH AT [place] [facility] Medical Branch DONEPEZIL 2021-0 Yes [id number] TAKE ONE [facility] 10 mg 6-28 TABLET BY ity of tablet 00:00: MOUTH AT [address] Medical Branch MIRTAZAPINE 2-0 Yes [id number] TAKE ONE [facility] 15 mg 6-28 TABLET BY ity of tablet 00:00: MOUTH AT [place] [facility] Medical Branch DONEPEZIL 2-0 Yes [id number] TAKE ONE [facility] 10 mg 6-28 TABLET BY ity of tablet 00:00: MOUTH AT [address] Medical Branch MIRTAZAPINE 2-0 Yes [id number] TAKE ONE [facility] 15 mg 6-28 TABLET BY ity of tablet 00:00: MOUTH AT [address] Medical Branch DONEPEZIL 2-0 Yes [id number] TAKE ONE [facility] 10 mg 6-28 TABLET BY ity of tablet 00:00: MOUTH AT [address] Medical Branch MIRTAZAPINE 2-0 Yes [id number] TAKE ONE [facility] 15 mg 6-28 TABLET BY ity of tablet 00:00: MOUTH AT [place] 00 BEDTIME Medical Branch DONEPEZIL 2021-0 Yes [id number] TAKE ONE [facility] 10 mg 6-28 TABLET BY ity of tablet 00:00: MOUTH AT [place] [facility] MIRTAZAPINE 2021-0 2021- No [id number] TAKE ONE [facility] 15 mg 6-28 07-26 TABLET BY ity of tablet 00:00: 00:00 MOUTH AT [place] 00 :00 [facility] Medical Branch DONEPEZIL 2021-0 2021- No [id number] TAKE ONE [facility] 10 mg 6-28 07-26 TABLET BY ity of tablet 00:00: 00:00 MOUTH AT [place] 00 :00 BEDTIME Medical Branch MIRTAZAPINE 2021-0 Yes [id number] TAKE ONE [facility] 15 mg 6-01 TABLET BY ity of tablet 00:00: MOUTH AT [place] 00 [facility] Medical Branch DONEPEZIL 2021-0 Yes [id number] TAKE ONE [facility] 10 mg 6-01 TABLET BY ity of tablet 00:00: MOUTH AT [place] 00 [facility] Branch MIRTAZAPINE 2021-0 Yes [id number] TAKE ONE [facility] 15 mg 6-01 TABLET BY ity of tablet 00:00: MOUTH AT [address] Branch DONEPEZIL 2021-0 Yes [id number] TAKE ONE [facility] 10 mg 6-01 TABLET BY ity of tablet 00:00: MOUTH AT [place] 00 [facility] Branch MIRTAZAPINE 2021-0 2021- No [id number] TAKE ONE [facility] 15 mg 6-01 06-28 TABLET BY ity of tablet 00:00: 00:00 MOUTH AT [place] 00 :00 [facility] Medical Branch DONEPEZIL 2021-0 2021- No [id number] TAKE ONE [facility] 10 mg 6-01 06-28 TABLET BY ity of tablet 00:00: 00:00 MOUTH AT [place] 00 :00 [facility] Branch finasteride 2021-0 Yes 5mg Take 5 mg U nivers 5 mg tablet 4-19 by mouth ity of 08:36: daily. [address] finasteride 2021-0 Yes 5mg Take 5 mg U nivers 5 mg tablet 4-19 by mouth ity of 08:36: daily. [address] finasteride 2021-0 Yes 5mg Take 5 mg U nivers 5 mg tablet 4-19 by mouth ity of 08:36: daily. [address] finasteride 2-0 Yes 5mg Take 5 mg U nivers 5 mg tablet 4-19 by mouth ity of 08:36: daily. [address] finasteride 2-0 Yes 5mg Take 5 mg U nivers 5 mg tablet 4-19 by mouth ity of 08:36: daily. [address] finasteride 2-0 Yes 5mg Take 5 mg U nivers 5 mg tablet 4-19 by mouth ity of 08:36: daily. [address] finasteride 2-0 Yes 5mg Take 5 mg U nivers 5 mg tablet 4-19 by mouth ity of 08:36: daily. [address] finasteride 2021-0 Yes 5mg Take 5 mg U nivers 5 mg tablet 4-19 by mouth ity of 08:36: daily. [address] finasteride 2-0 Yes 5mg Take 5 mg U nivers 5 mg tablet 4-19 by mouth ity of 08:36: daily. [address] finasteride 2-0 Yes 5mg Take 5 mg U nivers 5 mg tablet 4-19 by mouth ity of 08:36: daily. [address] finasteride 2-0 Yes 5mg Take 5 mg U nivers 5 mg tablet 4-19 by mouth ity of 08:36: daily. [address] finasteride 2-0 Yes 5mg Take 5 mg U nivers 5 mg tablet 4-19 by mouth ity of 08:36: daily. [address] finasteride 2-0 Yes 5mg Take 5 mg U nivers 5 mg tablet 4-19 by mouth ity of 08:36: daily. [address] finasteride 2-0 Yes 5mg Take 5 mg U nivers 5 mg tablet 4-19 by mouth ity of 08:36: daily. [address] finasteride 2-0 Yes 5mg Take 5 mg U nivers 5 mg tablet 4-19 by mouth ity of 08:36: daily. [address] finasteride 2-0 Yes 5mg Take 5 mg U nivers 5 mg tablet 4-19 by mouth ity of 08:36: daily. [address] finasteride 2-0 Yes 5mg Take 5 mg U nivers 5 mg tablet 4-19 by mouth ity of 08:36: daily. [address] finasteride 2-0 Yes 5mg Take 5 mg U nivers 5 mg tablet 4-19 by mouth ity of 08:36: daily. [address] finasteride 2-0 Yes 5mg Take 5 mg U nivers 5 mg tablet 4-19 by mouth ity of 08:36: daily. [address] finasteride 2021-0 Yes 5mg Take 5 mg U nivers 5 mg tablet 4-19 by mouth ity of 08:36: daily. [address] finasteride 2-0 Yes 5mg Take 5 mg U nivers 5 mg tablet 4-19 by mouth ity of 08:36: daily. [address] finasteride 2021-0 Yes 5mg Take 5 mg U nivers 5 mg tablet 4-19 by mouth ity of 08:36: daily. [address] finasteride 2021-0 Yes 5mg Take 5 mg U nivers 5 mg tablet 4-19 by mouth ity of 08:36: daily. [address] finasteride 2-0 Yes 5mg Take 5 mg U nivers 5 mg tablet 4-19 by mouth ity of 08:36: daily. [address] finasteride 2-0 Yes 5mg Take 5 mg U nivers 5 mg tablet 4-19 by mouth ity of 08:36: daily. [address] finasteride 2-0 Yes 5mg Take 5 mg U nivers 5 mg tablet 4-19 by mouth ity of 08:36: daily. [address] finasteride 2-0 Yes 5mg Take 5 mg U nivers 5 mg tablet 4-19 by mouth ity of 08:36: daily. [address] finasteride 2-0 Yes 5mg Take 5 mg U nivers 5 mg tablet 4-19 by mouth ity of 08:36: daily. [address] finasteride 2-0 Yes 5mg Take 5 mg U nivers 5 mg tablet 4-19 by mouth ity of 08:36: daily. [address] finasteride 2-0 Yes 5mg Take 5 mg U nivers 5 mg tablet 4-19 by mouth ity of 08:36: daily. [address] finasteride 2-0 Yes 5mg Take 5 mg U nivers 5 mg tablet 4-19 by mouth ity of 08:36: daily. [address] finasteride 2-0 Yes 5mg Take 5 mg U nivers 5 mg tablet 4-19 by mouth ity of 08:36: daily. [address] finasteride 2-0 Yes 5mg Take 5 mg U nivers 5 mg tablet 4-19 by mouth ity of 08:36: daily. [address] finasteride 2-0 Yes 5mg Take 5 mg U nivers 5 mg tablet 4-19 by mouth ity of 08:36: daily. [address] finasteride 2021-0 Yes 5mg Take 5 mg U nivers 5 mg tablet 4-19 by mouth ity of 08:36: daily. [address] finasteride 2021-0 Yes 5mg Take 5 mg U nivers 5 mg tablet 4-19 by mouth ity of 08:36: daily. [address] finasteride 2-0 Yes 5mg Take 5 mg U nivers 5 mg tablet 4-19 by mouth ity of 08:36: daily. [address] finasteride 2021-0 Yes 5mg Take 5 mg U nivers 5 mg tablet 4-19 by mouth ity of 08:36: daily. [address] finasteride 2-0 Yes 5mg Take 5 mg U nivers 5 mg tablet 4-19 by mouth ity of 08:36: daily. [address] finasteride 2-0 Yes 5mg Take 5 mg U nivers 5 mg tablet 4-19 by mouth ity of 08:36: daily. [address] finasteride 2-0 Yes 5mg Take 5 mg U nivers 5 mg tablet 4-19 by mouth ity of 08:36: daily. [address] finasteride 2-0 Yes 5mg Take 5 mg U nivers 5 mg tablet 4-19 by mouth ity of 08:36: daily. [address] finasteride 2-0 Yes 5mg Take 5 mg U nivers 5 mg tablet 4-19 by mouth ity of 08:36: daily. [address] finasteride 2-0 Yes 5mg Take 5 mg U nivers 5 mg tablet 4-19 by mouth ity of 08:36: daily. [place] [facility] Branch finasteride 2021-0 Yes 5mg Take 5 mg U nivers 5 mg tablet 4-19 by mouth ity of 08:36: daily. [place] [facility] Branch finasteride 2021-0 Yes 5mg Take 5 mg U nivers 5 mg tablet 4-19 by mouth ity of 08:36: daily. [place] [facility] Branch memantine 5 2021-0 Yes [id number] 5mg Take 1 [facility] mg tablet 3-11 tablet by ity o f 00:00: mouth (two) Medical times Branch daily. memantine 5 2021-0 Yes [id number] 5mg Take 1 [facility] mg tablet 3-11 tablet by ity o f 00:00: mouth (two) Medical times Branch daily. memantine 5 2021-0 Yes [id number] 5mg Take 1 [facility] mg tablet 3-11 tablet by ity o f 00:00: mouth () Medical times Branch daily. memantine 5 0 Yes [id number] 5mg Take 1 [facility] mg tablet 3-11 tablet by ity o f 00:00: mouth (two) Medical times Branch daily. memantine 5 2021-0 Yes [id number] 5mg Take 1 [facility] mg tablet 3-11 tablet by ity o f 00:00: mouth (two) Medical times Branch daily. memantine 5 2021-0 Yes [id number] 5mg Take 1 [facility] mg tablet 3-11 tablet by ity o f 00:00: mouth (two) Medical times Branch daily. memantine 5 2021-0 Yes [id number] 5mg Take 1 [facility] mg tablet 3-11 tablet by ity o f 00:00: mouth (two) Medical times Branch daily. memantine 5 2021-0 Yes [id number] 5mg Take 1 [facility] mg tablet 3-11 tablet by ity o f 00:00: mouth (two) Medical times Branch daily. memantine 5 2021-0 Yes [id number] 5mg Take 1 [facility] mg tablet 3-11 tablet by ity o f 00:00: mouth (two) Medical times Branch daily. memantine 5 2021-0 2021- No [id number] 5mg Take 1 [facility] mg tablet 3-11 07-14 tablet by ity of 00:00: 00:00 mouth 2 [place] 00 :00 (two) Medical times Branch daily. tamsulosin 2022-0 Yes .4mg Take 0.4 Uni vers 0.4 mg 24 3-06 mg by ity of hr capsule 00:00: mouth 00 daily. Medical Branch tamsulosin 2022-0 Yes .4mg Take 0.4 Uni vers 0.4 mg 24 3-06 mg by ity of hr capsule 00:00: mouth 00 daily. Medical Branch tamsulosin 2022-0 Yes .4mg Take 0.4 Uni vers 0.4 mg 24 3-06 mg by ity of hr capsule 00:00: mouth 00 daily. Medical Branch tamsulosin 2022-0 Yes .4mg Take 0.4 Uni vers 0.4 mg 24 3-06 mg by ity of hr capsule 00:00: mouth 00 daily. Medical Branch tamsulosin 2022-0 Yes .4mg Take 0.4 Uni vers 0.4 mg 24 3-06 mg by ity of hr capsule 00:00: mouth 00 daily. Medical Branch tamsulosin 2022-0 Yes .4mg Take 0.4 Uni vers 0.4 mg 24 3-06 mg by ity of hr capsule 00:00: mouth 00 daily. Medical Branch tamsulosin 2022-0 Yes .4mg Take 0.4 Uni vers 0.4 mg 24 3-06 mg by ity of hr capsule 00:00: mouth 00 daily. Medical Branch tamsulosin 2022-0 Yes .4mg Take 0.4 Uni vers 0.4 mg 24 3-06 mg by ity of hr capsule 00:00: mouth 00 daily. Medical Branch tamsulosin 2022-0 Yes .4mg Take 0.4 Uni vers 0.4 mg 24 3-06 mg by ity of hr capsule 00:00: mouth 00 daily. Medical Branch tamsulosin 2022-0 Yes .4mg Take 0.4 Uni vers 0.4 mg 24 3-06 mg by ity of hr capsule 00:00: mouth 00 daily. Medical Branch tamsulosin 2022-0 Yes .4mg Take 0.4 Uni vers 0.4 mg 24 3-06 mg by ity of hr capsule 00:00: mouth [place] 00 daily. Medical Branch tamsulosin 2022-0 Yes .4mg Take 0.4 Uni vers 0.4 mg 24 3-06 mg by ity of hr capsule 00:00: mouth [place] 00 daily. Medical Branch tamsulosin 2022-0 Yes .4mg Take 0.4 Uni vers 0.4 mg 24 3-06 mg by ity of hr capsule 00:00: mouth [place] 00 daily. Medical Branch tamsulosin 2022-0 Yes .4mg Take 0.4 Uni vers 0.4 mg 24 3-06 mg by ity of hr capsule 00:00: mouth [place] 00 daily. Medical Branch tamsulosin 2022-0 Yes .4mg Take 0.4 Uni vers 0.4 mg 24 3-06 mg by ity of hr capsule 00:00: mouth [place] 00 daily. Medical Branch tamsulosin 2022-0 Yes .4mg Take 0.4 Uni vers 0.4 mg 24 3-06 mg by ity of hr capsule 00:00: mouth [place] 00 daily. Medical Branch tamsulosin 2022-0 Yes .4mg Take 0.4 Uni vers 0.4 mg 24 3-06 mg by ity of hr capsule 00:00: mouth [place] 00 daily. Medical Branch tamsulosin 2022-0 Yes .4mg Take 0.4 Uni vers 0.4 mg 24 3-06 mg by ity of hr capsule 00:00: mouth [place] 00 daily. Medical Branch tamsulosin 2022-0 Yes .4mg Take 0.4 Uni vers 0.4 mg 24 3-06 mg by ity of hr capsule 00:00: mouth [place] 00 daily. Medical Branch tamsulosin 2022-0 Yes .4mg Take 0.4 Uni vers 0.4 mg 24 3-06 mg by ity of hr capsule 00:00: mouth [place] 00 daily. Medical Branch tamsulosin 2022-0 Yes .4mg Take 0.4 Uni vers 0.4 mg 24 3-06 mg by ity of hr capsule 00:00: mouth [place] 00 daily. Medical Branch tamsulosin 2022-0 Yes .4mg Take 0.4 Uni vers 0.4 mg 24 3-06 mg by ity of hr capsule 00:00: mouth [place] 00 daily. Medical Branch tamsulosin 2022-0 Yes .4mg Take 0.4 Uni vers 0.4 mg 24 3-06 mg by ity of hr capsule 00:00: mouth [place] 00 daily. Medical Branch tamsulosin 2022-0 Yes .4mg Take 0.4 Uni vers 0.4 mg 24 3-06 mg by ity of hr capsule 00:00: mouth [place] 00 daily. Medical Branch tamsulosin 2022-0 Yes .4mg Take 0.4 Uni vers 0.4 mg 24 3-06 mg by ity of hr capsule 00:00: mouth [place] 00 daily. Medical Branch tamsulosin 2022-0 Yes .4mg Take 0.4 Uni vers 0.4 mg 24 3-06 mg by ity of hr capsule 00:00: mouth [place] 00 daily. Medical Branch tamsulosin 2022-0 Yes .4mg Take 0.4 Uni vers 0.4 mg 24 3-06 mg by ity of hr capsule 00:00: mouth [place] 00 daily. Medical Branch tamsulosin 2022-0 Yes .4mg Take 0.4 Uni vers 0.4 mg 24 3-06 mg by ity of hr capsule 00:00: mouth [place] 00 daily. Medical Branch tamsulosin 2022-0 Yes .4mg Take 0.4 Uni vers 0.4 mg 24 3-06 mg by ity of hr capsule 00:00: mouth [place] 00 daily. Medical Branch tamsulosin 2022-0 Yes .4mg Take 0.4 Uni vers 0.4 mg 24 3-06 mg by ity of hr capsule 00:00: mouth [place] 00 daily. Medical Branch tamsulosin 2022-0 Yes .4mg Take 0.4 Uni vers 0.4 mg 24 3-06 mg by ity of hr capsule 00:00: mouth [place] 00 daily. Medical Branch tamsulosin 2022-0 Yes .4mg Take 0.4 Uni vers 0.4 mg 24 3-06 mg by ity of hr capsule 00:00: mouth [place] 00 daily. Medical Branch tamsulosin 2022-0 Yes .4mg Take 0.4 Uni vers 0.4 mg 24 3-06 mg by ity of hr capsule 00:00: mouth [place] 00 daily. Medical Branch tamsulosin 2022-0 Yes .4mg Take 0.4 Uni vers 0.4 mg 24 3-06 mg by ity of hr capsule 00:00: mouth [place] 00 daily. Medical Branch tamsulosin 2022-0 Yes .4mg Take 0.4 Uni vers 0.4 mg 24 3-06 mg by ity of hr capsule 00:00: mouth [place] 00 daily. Medical Branch tamsulosin 2022-0 Yes .4mg Take 0.4 Uni vers 0.4 mg 24 3-06 mg by ity of hr capsule 00:00: mouth [place] 00 daily. Medical Branch tamsulosin 2022-0 Yes .4mg Take 0.4 Uni vers 0.4 mg 24 3-06 mg by ity of hr capsule 00:00: mouth [place] 00 daily. Medical Branch tamsulosin 2022-0 Yes .4mg Take 0.4 Uni vers 0.4 mg 24 3-06 mg by ity of hr capsule 00:00: mouth [place] 00 daily. Medical Branch tamsulosin 2022-0 Yes .4mg Take 0.4 Uni vers 0.4 mg 24 3-06 mg by ity of hr capsule 00:00: mouth [place] 00 daily. Medical Branch tamsulosin 2-0 Yes .4mg Take 0.4 Uni vers 0.4 mg 24 3-06 mg by ity of hr capsule 00:00: mouth [place] 00 daily. Medical Branch tamsulosin 2-0 Yes .4mg Take 0.4 Uni vers 0.4 mg 24 3-06 mg by ity of hr capsule 00:00: mouth [place] 00 daily. Medical Branch tamsulosin 2-0 Yes .4mg Take 0.4 Uni vers 0.4 mg 24 3-06 mg by ity of hr capsule 00:00: mouth [place] 00 daily. Medical Branch tamsulosin 2022-0 Yes .4mg Take 0.4 Uni vers 0.4 mg 24 3-06 mg by ity of hr capsule 00:00: mouth [place] 00 daily. Medical Branch tamsulosin 2022-0 Yes .4mg Take 0.4 Uni vers 0.4 mg 24 3-06 mg by ity of hr capsule 00:00: mouth [place] 00 daily. Medical Branch tamsulosin 2022-0 Yes .4mg Take 0.4 Uni vers 0.4 mg 24 3-06 mg by ity of hr capsule 00:00: mouth [place] 00 daily. Medical Branch cephALEXin 2020-0 2022- No [id number] 500mg Take 1 Univers (KEFLEX) 04-08-19 capsule by ity of 500 mg 00:00: 00:00 mouth 2 [place] capsule 00 :00 (two) Medical times Branch daily. donepeziL 2020-0 Yes [id number] 10mg Take 1 Un nina 10 mg 5-28 tablet by ity of tablet 00:00: mouth at [place] [address] bedtime. Medical Branch mirtazapine 2020-0 Yes [id number] 15mg Take 1 [facility] 15 mg 5-28 tablet by ity of tablet 00:00: mouth at [place] [address] bedtime. Medical Branch donepeziL 2020-0 Yes [id number] 10mg Take 1 Un nina 10 mg 5-28 tablet by ity of tablet 00:00: mouth at [place] [address] bedtime. Medical Branch mirtazapine 2020-0 Yes [id number] 15mg Take 1 [facility] 15 mg 5-28 tablet by ity of tablet 00:00: mouth at [place] [address] bedtime. Medical Branch donepeziL 2020-0 Yes [id number] 10mg Take 1 Un nina 10 mg 5-28 tablet by ity of tablet 00:00: mouth at [place] [address] bedtime. Medical Branch mirtazapine 2020-0 Yes [id number] 15mg Take 1 [facility] 15 mg 5-28 tablet by ity of tablet 00:00: mouth at [place] [address] bedtime. Medical Branch donepeziL 2020-0 Yes [id number] 10mg Take 1 Un nina 10 mg 5-28 tablet by ity of tablet 00:00: mouth at [place] [address] bedtime. Medical Branch mirtazapine 2020-0 Yes [id number] 15mg Take 1 [facility] 15 mg 5-28 tablet by ity of tablet 00:00: mouth at [place] [address] bedtime. Medical Branch donepeziL 2020-0 Yes [id number] 10mg Take 1 Un nina 10 mg 5-28 tablet by ity of tablet 00:00: mouth at [place] [address] bedtime. Medical Branch mirtazapine 2020-0 Yes [id number] 15mg Take 1 [facility] 15 mg 5-28 tablet by ity of tablet 00:00: mouth at [place] [address] bedtime. Medical Branch donepeziL 2020-0 Yes [id number] 10mg Take 1 Un nina 10 mg 5-28 tablet by ity of tablet 00:00: mouth at [place] [address] bedtime. Medical Branch mirtazapine 2021-0 Yes [id number] 15mg Take 1 [facility] 15 mg 5-28 tablet by ity of tablet 00:00: mouth at [place] 00 bedtime. Medical Branch donepeziL 2021- No [id number] 10mg Take 1 U nivers 10 mg 5-28 06- tablet by ity of tablet 00:00: 00:00 mouth at [place] 00 :00 bedtime. Medical Branch mirtazapine 2021- No [id number] 15mg Take 1 [facility] 15 mg 5-28 - tablet by ity of tablet 00:00: 00:00 mouth at [place] 00 :00 bedtime. Medical Branch Immunizations Ordered Filled Immunization Date Status Comments [facility] e Immunization Name Name Pneumococcal 20 2023-03-07 Completed Universit y of Conjugate, PCV20 00:00:00 [facility] dical (Prevnar 20) Branch [facility] 2023-03-07 Completed University of 00:00:00 [facility] Zoster Vaccine 2023-03-07 Completed University of Recombinant 00:00:00 [facility] Pneumococcal 20 2023-03-07 Completed Universit y of Conjugate, PCV20 00:00:00 [facility] dical (Prevnar 20) Branch [facility] 2023-03-07 Completed University of 00:00:00 [facility] Zoster Vaccine 2023-03-07 Completed University of Recombinant 00:00:00 [facility] Pneumococcal 20 2023-03-07 Completed Universit y of Conjugate, PCV20 00:00:00 [facility] dical (Prevnar 20) Branch [facility] 2023-03-07 Completed University of 00:00:00 [facility] Zoster Vaccine 2023-03-07 Completed University of Recombinant 00:00:00 [facility] Influenza High Dose 2022-07-20 Completed Unive rsity of Quad 00:00:00 [facility] SARS-COV-2 COVID-19 2022-07-20 Completed Unive rsity of VACCINE, BIVALENT 00:00:00 [facility] edical (MODERNA BOOSTER) Branch Influenza High Dose 2022-07-20 Completed Unive rsity of Quad 00:00:00 [facility] SARS-COV-2 COVID-19 2022-07-20 Completed Unive rsity of VACCINE, BIVALENT 00:00:00 [facility] edical (MODERNA BOOSTER) Branch Influenza High Dose 2022-07-20 Completed Unive rsity of Quad 00:00:00 [facility] SARS-COV-2 COVID-19 2022-07-20 Completed Unive rsity of VACCINE, BIVALENT 00:00:00 [facility] (MOD[facility]NA [facility]) [place] Influenza Virus 2021-07-08 Completed Universit y of Vaccine 00:00:00 [facility] Influenza Virus 2021-07-08 Completed Universit y of Vaccine 00:00:00 [facility] Influenza Virus 2021-07-08 Completed Universit y of Vaccine 00:00:00 [facility] Influenza Virus 2021-07-08 Completed Universit y of Vaccine 00:00:00 [facility] Influenza Virus 2021-07-08 Completed Universit y of Vaccine 00:00:00 [facility] Influenza Virus 2021-07-08 Completed Universit y of Vaccine 00:00:00 [facility] Influenza Virus 2021-07-08 Completed Universit y of Vaccine 00:00:00 [facility] Influenza Virus 2021-07-08 Completed Universit y of Vaccine 00:00:00 [facility] Influenza Virus 2021-07-08 Completed Universit y of Vaccine 00:00:00 [facility] Influenza Virus 2021-07-08 Completed Universit y of Vaccine 00:00:00 [facility] Influenza Virus 2021-07-08 Completed Universit y of Vaccine 00:00:00 [facility] Influenza Virus 2021-07-08 Completed Universit y of Vaccine 00:00:00 [facility] Influenza Virus 2021-07-08 Completed Universit y of Vaccine 00:00:00 [facility] Influenza Virus 2021-07-08 Completed Universit y of Vaccine 00:00:00 [facility] Influenza Virus 2021-07-08 Completed Universit y of Vaccine 00:00:00 [facility] Influenza Virus 2021-07-08 Completed Universit y of Vaccine 00:00:00 [facility] Influenza Virus 2021-07-08 Completed Universit y of Vaccine 00:00:00 [facility] Influenza Virus 2021-07-08 Completed Universit y of Vaccine 00:00:00 [facility] Influenza Virus 2021-07-08 Completed Universit y of Vaccine 00:00:00 [facility] Influenza Virus 2021-07-08 Completed Universit y of Vaccine 00:00:00 [facility] Influenza Virus 2021-07-08 Completed Universit y of Vaccine 00:00:00 [facility] Influenza Virus 2021-07-08 Completed Universit y of Vaccine 00:00:00 [facility] Branch Influenza Virus 2021-07-08 Completed Universit y of Vaccine 00:00:00 [place] [facility] Branch Influenza Virus 2021-07-08 Completed Universit y of Vaccine 00:00:00 [facility] Influenza Virus 2021-07-08 Completed Universit y of Vaccine 00:00:00 [facility] Branch Influenza High Dose 2021-07-08 Completed Unive rsity of Quad 00:00:00 [facility] Influenza Virus 2021-07-08 Completed Universit y of Vaccine 00:00:00 [facility] Branch Influenza High Dose 2021-07-08 Completed Unive rsity of [place] 00:00:00 [facility] Influenza Virus 2021-07-08 Completed Universit y of Vaccine 00:00:00 [facility] Influenza High Dose 2021-07-08 Completed Unive rsity of Quad 00:00:00 [facility] Influenza Virus 2021-07-08 Completed Universit y of Vaccine 00:00:00 [facility] Branch Influenza Virus 2021-07-08 Completed Universit y of Vaccine 00:00:00 [facility] Influenza Virus 2021-07-08 Completed Universit y of Vaccine 00:00:00 [facility] Branch Influenza Virus 2021-07-08 Completed Universit y of Vaccine 00:00:00 [facility] Influenza Virus 2021-07-08 Completed Universit y of Vaccine 00:00:00 [facility] Influenza Virus 2021-07-08 Completed Universit y of Vaccine 00:00:00 [facility] Branch Influenza Virus 2021-07-08 Completed Universit y of Vaccine 00:00:00 [facility] Influenza Virus 2021-07-08 Completed Universit y of Vaccine 00:00:00 [facility] Branch Influenza Virus 2021-07-08 Completed Universit y of Vaccine 00:00:00 [place] [facility] Branch Influenza Virus 2021-07-08 Completed Universit y of Vaccine 00:00:00 [place] [facility] Branch Influenza Virus 2021-07-08 Completed Universit y of Vaccine 00:00:00 [facility] Influenza Virus 2021-07-08 Completed Universit y of Vaccine 00:00:00 [facility] Branch Influenza Virus 2021-07-08 Completed Universit y of Vaccine 00:00:00 [facility] Influenza Virus 2021-07-08 Completed Universit y of Vaccine 00:00:00 [facility] Influenza Virus 2021-07-08 Completed Universit y of Vaccine 00:00:00 [facility] Influenza Virus 2021-07-08 Completed Universit y of Vaccine 00:00:00 [facility] Influenza Virus 2021-07-08 Completed Universit y of Vaccine 00:00:00 [facility] Influenza Virus 2021-07-08 Completed Universit y of Vaccine 00:00:00 [facility] SARS-COV-2 COVID-19 2020-11-08 Completed Unive rsity of MODER[place] 12+ YRS 00:00:00 [facility] ical VACCINE Branch SARS-COV-2 COVID-19 2020-11-08 Completed Unive rsity of [place] 12+ YRS 00:00:00 [facility] ical VACCINE Branch SARS-COV-2 COVID-19 2020-11-08 Completed Unive rsity of [place] 12+ YRS 00:00:00 [facility] ical VACCINE Branch SARS-COV-2 COVID-19 2020-11-08 Completed Unive rsity of [place] 12+ YRS 00:00:00 [place] [facility] VACCINE [facility] SARS-COV-2 COVID-19 2020-11-08 Completed Unive rsity of [place] 12+ YRS 00:00:00 [place] [facility] VACCINE [facility] SARS-COV-2 COVID-19 2020-11-08 Completed Unive rsity of [place] 12+ YRS 00:00:00 [place] [facility] VACCINE [facility] SARS-COV-2 COVID-19 2020-11-08 Completed Unive rsity of [place] 12+ YRS 00:00:00 [place] [facility] VACCINE [facility] SARS-COV-2 COVID-19 2020-11-08 Completed Unive rsity of [place] 12+ YRS 00:00:00 [place] [facility] VACCINE [facility] SARS-COV-2 COVID-19 2020-11-08 Completed Unive rsity of [place] 12+ YRS 00:00:00 [place] [facility] VACCINE [facility] SARS-COV-2 COVID-19 2020-11-08 Completed Unive rsity of [place] 12+ YRS 00:00:00 [facility] ical VACCINE Branch SARS-COV-2 COVID-19 2020-11-08 Completed Unive rsity of [place] 12+ YRS 00:00:00 [place] [facility] VACCINE Branch SARS-COV-2 COVID-19 2020-11-08 Completed Unive rsity of [place] 12+ YRS 00:00:00 [place] [facility] VACCINE Branch SARS-COV-2 COVID-19 2020-11-08 Completed Unive rsity of [place] 12+ YRS 00:00:00 [place] [facility] VACCINE Branch SARS-COV-2 COVID-19 2020-11-08 Completed Unive rsity of [place] 12+ YRS 00:00:00 [place] [facility] VACCINE Branch SARS-COV-2 COVID-19 2020-11-08 Completed Unive rsity of [place] 12+ YRS 00:00:00 [place] [facility] VACCINE Branch SARS-COV-2 COVID-19 2020-11-08 Completed Unive rsity of [place] 12+ YRS 00:00:00 [place] [facility] VACCINE Branch SARS-COV-2 COVID-19 2020-11-08 Completed Unive rsity of [place] 12+ YRS 00:00:00 [place] [facility] VACCINE Branch SARS-COV-2 COVID-19 2020-11-08 Completed Unive rsity of [place] 12+ YRS 00:00:00 [place] [facility] VACCINE [facility] SARS-COV-2 COVID-19 2020-11-08 Completed Unive rsity of [place] 12+ YRS 00:00:00 [place] [facility] VACCINE Branch SARS-COV-2 COVID-19 2020-11-08 Completed Unive rsity of [place] 12+ YRS 00:00:00 [place] [facility] VACCINE Branch SARS-COV-2 COVID-19 2020-11-08 Completed Unive rsity of [place] 12+ YRS 00:00:00 [place] [facility] VACCINE Branch SARS-COV-2 COVID-19 2020-11-08 Completed Unive rsity of [place] 12+ YRS 00:00:00 [place] [facility] VACCINE Branch SARS-COV-2 COVID-19 2020-11-08 Completed Unive rsity of [place] 12+ YRS 00:00:00 [place] [facility] VACCINE Branch SARS-COV-2 COVID-19 2020-11-08 Completed Unive rsity of [place] 12+ YRS 00:00:00 [place] [facility] VACCINE Branch SARS-COV-2 COVID-19 2020-11-08 Completed Unive rsity of [place] 12+ YRS 00:00:00 [place] [facility] VACCINE Branch SARS-COV-2 COVID-19 2020-11-08 Completed Unive rsity of [place] 12+ YRS 00:00:00 [place] [facility] VACCINE Branch SARS-COV-2 COVID-19 2020-11-08 Completed Unive rsity of [place]ER[place] 12+ YRS 00:00:00 [place] [facility] VACCINE Branch SARS-COV-2 COVID-19 2020-11-08 Completed Unive rsity of [place] VACCINE 00:00:00 [place] [facility] SARS-COV-2 COVID-19 2020-11-08 Completed Unive rsity of [place] VACCINE 00:00:00 [place] [facility] SARS-COV-2 COVID-19 2020-11-08 Completed Unive rsity of [place] VACCINE 00:00:00 [place] [facility] SARS-COV-2 COVID-19 2020-11-08 Completed Unive rsity of [place] VACCINE 00:00:00 [place] [facility] SARS-COV-2 COVID-19 2020-11-08 Completed Unive rsity of [place] VACCINE 00:00:00 [place] [facility] SARS-COV-2 COVID-19 2020-11-08 Completed Unive rsity of [place]ER[place] VACCINE 00:00:00 [place] [facility] SARS-COV-2 COVID-19 2020-11-08 Completed Unive rsity of [place] VACCINE 00:00:00 [place] [facility] SARS-COV-2 COVID-19 2020-11-08 Completed Unive rsity of [place] VACCINE 00:00:00 [place] [facility] SARS-COV-2 COVID-19 2020-11-08 Completed Unive rsity of [place] VACCINE 00:00:00 [place] [facility] SARS-COV-2 COVID-19 2020-11-08 Completed Unive rsity of [place] VACCINE 00:00:00 [place] [facility] SARS-COV-2 COVID-19 2020-11-08 Completed Unive rsity of [place] VACCINE 00:00:00 [place] [facility] SARS-COV-2 COVID-19 2020-11-08 Completed Unive rsity of [place] VACCINE 00:00:00 [facility] ical Branch SARS-COV-2 COVID-19 2020-11-08 Completed Unive rsity of [place] VACCINE 00:00:00 [facility] ical Branch SARS-COV-2 COVID-19 2020-11-08 Completed Unive rsity of [place] VACCINE 00:00:00 [facility] ical Branch SARS-COV-2 COVID-19 2020-11-08 Completed Unive rsity of [place] VACCINE 00:00:00 [facility] ical Branch SARS-COV-2 COVID-19 2020-11-08 Completed Unive rsity of [place] VACCINE 00:00:00 [facility] ical Branch SARS-COV-2 COVID-19 2020-11-08 Completed Unive rsity of [place] VACCINE 00:00:00 [facility] ical Branch SARS-COV-2 COVID-19 2020-11-08 Completed Unive rsity of [place] VACCINE 00:00:00 [facility] ical Branch SARS-COV-2 COVID-19 2020-10-07 Completed Unive rsity of VACCINE - (MODERNA) 00:00:00 [facility] Branch SARS-COV-2 COVID-19 2020-10-07 Completed Unive rsity of VACCINE - (MODERNA) 00:00:00 [facility] Branch SARS-COV-2 COVID-19 2020-10-07 Completed Unive rsity of VACCINE - (MODERNA) 00:00:00 [facility] Branch SARS-COV-2 COVID-19 2020-10-06 Completed Unive rsity of [place] 12+ YRS 00:00:00 [facility] ical VACCINE Branch SARS-COV-2 COVID-19 2020-10-06 Completed Unive rsity of [place] 12+ YRS 00:00:00 [facility] ical VACCINE Branch SARS-COV-2 COVID-19 2020-10-06 Completed Unive rsity of [place] 12+ YRS 00:00:00 [facility] ical VACCINE Branch SARS-COV-2 COVID-19 2020-10-06 Completed Unive rsity of [place] 12+ YRS 00:00:00 [facility] ical VACCINE Branch SARS-COV-2 COVID-19 2020-10-06 Completed Unive rsity of [place] 12+ YRS 00:00:00 [place] [facility] VACCINE Branch SARS-COV-2 COVID-19 2020-10-06 Completed Unive rsity of [place] 12+ YRS 00:00:00 [place] [facility] VACCINE Branch SARS-COV-2 COVID-19 2020-10-06 Completed Unive rsity of [place]ER[place] 12+ YRS 00:00:00 [place] [facility] VACCINE Branch SARS-COV-2 COVID-19 2020-10-06 Completed Unive rsity of [place] 12+ YRS 00:00:00 [place] [facility] VACCINE Branch SARS-COV-2 COVID-19 2020-10-06 Completed Unive rsity of [place] 12+ YRS 00:00:00 [place] [facility] VACCINE Branch SARS-COV-2 COVID-19 2020-10-06 Completed Unive rsity of [place] 12+ YRS 00:00:00 [place] [facility] VACCINE Branch SARS-COV-2 COVID-19 2020-10-06 Completed Unive rsity of [place]ER[place] 12+ YRS 00:00:00 [place] [facility] VACCINE Branch SARS-COV-2 COVID-19 2020-10-06 Completed Unive rsity of MODERNA 12+ YRS 00:00:00 [place] [facility] VACCINE Branch SARS-COV-2 COVID-19 2020-10-06 Completed Unive rsity of [place]ER[place] 12+ YRS 00:00:00 [place] [facility] VACCINE Branch SARS-COV-2 COVID-19 2020-10-06 Completed Unive rsity of [place] 12+ YRS 00:00:00 [place] [facility] VACCINE Branch SARS-COV-2 COVID-19 2020-10-06 Completed Unive rsity of [place]ER[place] 12+ YRS 00:00:00 [place] [facility] VACCINE Branch SARS-COV-2 COVID-19 2020-10-06 Completed Unive rsity of MODERNA 12+ YRS 00:00:00 [place] [facility] VACCINE Branch SARS-COV-2 COVID-19 2020-10-06 Completed Unive rsity of MODERNA 12+ YRS 00:00:00 [place] [facility] VACCINE Branch SARS-COV-2 COVID-19 2020-10-06 Completed Unive rsity of MODERNA 12+ YRS 00:00:00 [place] [facility] VACCINE Branch SARS-COV-2 COVID-19 2020-10-06 Completed Unive rsity of MODERNA 12+ YRS 00:00:00 [place] [facility] VACCINE Branch SARS-COV-2 COVID-19 2020-10-06 Completed Unive rsity of MODERNA 12+ YRS 00:00:00 [place] [facility] VACCINE Branch SARS-COV-2 COVID-19 2020-10-06 Completed Unive rsity of MODERNA 12+ YRS 00:00:00 [place] [facility] VACCINE Branch SARS-COV-2 COVID-19 2020-10-06 Completed Unive rsity of MODERNA 12+ YRS 00:00:00 [place] [facility] VACCINE Branch SARS-COV-2 COVID-19 2020-10-06 Completed Unive rsity of [place]ER[place] 12+ YRS 00:00:00 [place] [facility] VACCINE Branch SARS-COV-2 COVID-19 2020-10-06 Completed Unive rsity of MODERNA 12+ YRS 00:00:00 [place] [facility] VACCINE Branch SARS-COV-2 COVID-19 2020-10-06 Completed Unive rsity of MODERNA 12+ YRS 00:00:00 [place] [facility] VACCINE Branch SARS-COV-2 COVID-19 2020-10-06 Completed Unive rsity of MODERNA 12+ YRS 00:00:00 [place] [facility] VACCINE Branch SARS-COV-2 COVID-19 2020-10-06 Completed Unive rsity of MODERNA 12+ YRS 00:00:00 [place] [facility] VACCINE Branch SARS-COV-2 COVID-19 2020-10-06 Completed Unive rsity of MODERNA VACCINE 00:00:00 [place] [facility] SARS-COV-2 COVID-19 2020-10-06 Completed Unive rsity of [place]ER[place] VACCINE 00:00:00 [place] [facility] SARS-COV-2 COVID-19 2020-10-06 Completed Unive rsity of MODERNA VACCINE 00:00:00 [place] [facility] SARS-COV-2 COVID-19 2020-10-06 Completed Unive rsity of MODERNA VACCINE 00:00:00 [place] [facility] SARS-COV-2 COVID-19 2020-10-06 Completed Unive rsity of [place]ERNA VACCINE 00:00:00 [place] [facility] SARS-COV-2 COVID-19 2020-10-06 Completed Unive rsity of MODERNA VACCINE 00:00:00 [facility] ical Branch SARS-COV-2 COVID-19 2020-10-06 Completed Unive rsity of MODERNA VACCINE 00:00:00 [facility] ical Branch SARS-COV-2 COVID-19 2020-10-06 Completed Unive rsity of [place]ER[place] VACCINE 00:00:00 [facility] SARS-COV-2 COVID-19 2020-10-06 Completed Unive rsity of [place] VACCINE 00:00:00 [facility] SARS-COV-2 COVID-19 2020-10-06 Completed Unive rsity of [place] VACCINE 00:00:00 [facility] SARS-COV-2 COVID-19 2020-10-06 Completed Unive rsity of [place] VACCINE 00:00:00 [facility] SARS-COV-2 COVID-19 2020-10-06 Completed Unive rsity of [place]ERNA VACCINE 00:00:00 [facility] SARS-COV-2 COVID-19 2020-10-06 Completed Unive rsity of [place]ER[place] VACCINE 00:00:00 [facility] SARS-COV-2 COVID-19 2020-10-06 Completed Unive rsity of [place]ER[place] VACCINE 00:00:00 [facility] SARS-COV-2 COVID-19 2020-10-06 Completed Unive rsity of [place] VACCINE 00:00:00 [facility] SARS-COV-2 COVID-19 2020-10-06 Completed Unive rsity of MODERNA VACCINE 00:00:00 [facility] SARS-COV-2 COVID-19 2020-10-06 Completed Unive rsity of [place]ER[place] VACCINE 00:00:00 [facility] Branch SARS-COV-2 COVID-19 2020-10-06 Completed Unive rsity of [place]ER[place] VACCINE 00:00:00 [facility] Vital Signs Vital Name Observation Time Observation Value Comments Source Systolic blood 2023-03-12 15:31:00 129 mm[Hg] Univer sity of pressure [facility] Diastolic blood 2023-03-12 15:31:00 75 mm[Hg] Unive rsity of pressure [facility] Heart rate 2023-03-12 15:31:00 78 /min Universi ty of [facility] Body temperature 2023-03-12 15:31:00 37.33 Dorene Univ ersity of [facility] Body weight 2023-03-12 15:31:00 90.266 kg Universi ty of [facility] BMI 2023-03-12 15:31:00 28.55 kg/m2 Universi ty of [facility] Systolic blood 2022-12-11 20:15:00 125 mm[Hg] Univer sity of pressure [facility] Diastolic blood 2022-12-11 20:15:00 82 mm[Hg] Unive rsity of pressure [facility] Heart rate 2022-12-11 20:15:00 73 /min Universi ty of [facility] Body temperature 2022-12-11 20:15:00 36.83 Dorene Univ ersity of [facility] Body height 2022-12-11 20:15:00 177.8 cm Universi ty of [facility] Body weight 2022-12-11 20:15:00 89.359 kg Universi ty of [facility] BMI 2022-12-11 20:15:00 28.27 kg/m2 Universi ty of [facility] Oxygen saturation in 2022-12-11 20:15:00 97 /min [facility] Arterial blood by [facility] Pulse oximetry Branch Systolic blood 2021-11-22 13:33:00 132 mm[Hg] Univer sity of pressure [facility] Diastolic blood 2021-11-22 13:33:00 81 mm[Hg] Unive rsity of pressure [facility] Heart rate 2021-11-22 13:33:00 76 /min Universi ty of [facility] Body temperature 2021-11-22 13:33:00 36.83 Dorene Univ ersity of [facility] Body height 2021-11-22 13:33:00 182.9 cm Universi ty of [facility] Body weight 2021-11-22 13:33:00 88.905 kg Universi ty of [facility] BMI 2021-11-22 13:33:00 26.58 kg/m2 Universi ty of [facility] Procedures Procedure Date / Time Performing Clinician Source Performed [facility] PATIENT FINANCIAL 2022-12-11 19:53:58 Doctor Baptiste, Un [facility] POLICY [facility] AUTHORIZATION FOR RELEASE 2022-06-01 05:01:00 Doctor Baptiste, [facility] ASSIGNMENT OF BENEFITS 2022-04-07 13:10:55 Doctor Baptiste, Faheem [facility] INSURANCE CORRESPONDENCE 2022-03-30 05:01:00 Doctor Baptiste [facility] EXTERNAL PROVIDER RECORDS 2022-03-06 05:01:00 Doctor Emile, [facility] INSURANCE CORRESPONDENCE 2022-02-24 05:01:00 Doctor Baptiste, [facility] HOME HEALTH [id number] 2022-02-15 05:01:00 Doctor Baptiste, [facility] EXTERNAL PROVIDER RECORDS 2022-01-05 05:01:00 Doctor Baptiste [facility] DME/SUPPLY JUSTIFICATION 2021-12-15 05:01:00 Doctor Baptiste, [facility] VACCINATIONS - CONSENTS, 2021-07-08 06:01:00 Doctor Baptiste, [facility] ELIGIBILITY, HISTORY [facility] Encounters Start End Encounter Admission Attending Care Care Encounter Source Date/Time Date/Time Type Type Clinicians Facility Department ID 2021-06-05 Emergency [facility] [id number] Univers 20:16:19 [facility] 2023-03-12 2023-03-12 [id number] [facility] 10:30:00 10:54:19 MASSIEL [facility] 2023-03-12 2023-03-12 Office [facility] [id number] [facility] 10:30:00 10:54:19 Visit [facility] [id number] it y of [place] [id number] Juan Jose as DONTE?BLEA [id number] [address] MEDICAL OFFICE BUILDING 2023-02-28 2023-02-28 Refill [facility] 1.2.840.114 [id number] Univers 00:00:00 00:00:00 [facility] [id number] it y of [place] [id number] Juan Jose as DONTE?BLEA [phone] [address] OFFICE [facility] 2023-02-14 2023-02-14 [facility] [id number] Univers 00:00:00 00:00:00 [facility] [id number] it y of [place] [id number] Juan Jose as DONTE?BLEA [id number] [address] OFFICE [facility] 2023-01-30 2023-01-30 [facility] [id number] Univers 00:00:00 00:00:00 [facility] [id number] it y of [place] [id number] Juan Jose as DONTE?BLEA [id number] [address] OFFICE [facility] 2022-12-31 2022-12-31 [facility] [id number] Univers 00:00:00 00:00:00 [facility] [id number] it y of [place] [id number] Juan Jose as DONTE?BLEA [id number] [address] 2022-12-11 2022-12-[address] [facility] [id number] Univers 15:15:00 15:32:04 MASSIEL ity of [facility] 2022-12-11 2022-12-11 Office [facility] 1.2.840.114 [id number] Univers 15:15:00 15:32:04 Visit [facility] [id number] it y of [place] [id number] Juan Jose as DONTE?BLEA [id number] [address] OFFICE [facility] 2022-12-11 2022-12-11 Orders Doctor MONTANEZ 1.2.840.114 [id number] Univers 00:00:00 00:00:00 Only Unassigned, RONA [id number] ity of [place] [facility] [id number] Juan Jose as [id number] [address] 2022-12-03 2022-12-03 [facility] 1.2.840.114 [id number] Univers 00:00:00 00:00:00 [facility] [id number] it y of [place] [id number] Juan Jose as DONTE?BLEA [id number] [address] MEDICAL OFFICE [facility] 2022-11-07 2022-11-07 [facility] 1.2.840.114 [id number] Univers 00:00:00 00:00:00 [facility] [id number] it y of [place] [id number] Juan Jose as DONTE?BLEA [phone] [address] OFFICE [facility] 2022-11-06 2022-11-06 [facility] 1.2.840.114 [id number] Univers 00:00:00 00:00:00 [facility] [id number] it y of [place] [id number] Juan Jose as DONTE?BLEA [id number] [address] OFFICE [facility] 2022-10-09 2022-10-09 [facility] 1.2.840.114 [id number] Univers 00:00:00 00:00:00 [facility] [id number] it y of [place] [id number] Juan Jose as DONTE?BLEA [id number] [address] OFFICE [facility] 2022-09-11 2022-09-11 [facility] 1.2.840.114 [id number] Univers 00:00:00 00:00:00 [facility] [id number] it y of [place] [id number] Juan Jose as DONTE?BLEA [id number] [address] OFFICE [facility] 2022-08-15 2022-08-15 [facility] 1.2.840.114 [id number] Univers 00:00:00 00:00:00 [facility] [id number] it y of [place] [id number] Juan Jose as DONTE?BLEA [id number] [address] MEDICAL OFFICE [facility] 2022-08-09 2022-08-09 [facility] 1.2.840.114 [id number] Univers 00:00:00 00:00:00 [facility] HEALTH [id number] it y of [place] [id number] Juan Jose as DONTE?BLEA [id number] [address] OFFICE [facility] 2022-07-19 2022-07-19 [facility] 1.2.840.114 [id number] Univers 00:00:00 00:00:00 [facility] [id number] it y of [place] [id number] Juan Jose as DONTE?BLEA [id number] [address] OFFICE [facility] 2022-06-22 2022-06-22 [facility] 1.2.840.114 [id number] Univers 00:00:00 00:00:00 [facility] [id number] it y of [place] [id number] Juan Jose as DONTE?BLEA [id number] [address] OFFICE [facility] 2022-06-01 2022-06-01 Orders Doctor MONTANEZ 1.2.840.114 [id number] Univers 00:00:00 00:00:00 Only Unassigned, RONA [id number] ity of [place] [facility] [id number] Juan Jose as [id number] [address] 2022-05-23 2022-05-23 [facility] 1.2.840.114 [id number] Univers 00:00:00 00:00:00 [facility] [id number] it y of [place] [id number] Juan Jose as DONTE?BLEA [id number] [address] MEDICAL OFFICE [facility] 2022-05-14 2022-05-14 [facility] 1.2.840.114 [id number] Univers 00:00:00 00:00:00 [facility] [id number] it y of [place] [id number] Juan Jose as DONTE?BLEA [id number] [address] OFFICE [facility] 2022-04-25 2022-04-25 [facility] 1.2.840.114 [id number] Univers 00:00:00 00:00:00 [facility] HEALTH [id number] it y of [place] [id number] Juan Jose as DONTE?BLEA [id number] [address] OFFICE [facility] 2022-04-13 2022-04-13 [facility] 1.2.840.114 [id number] Univers 00:00:00 00:00:00 [facility] [id number] it y of [place] [id number] Juan Jose as DONTE?BLEA [id number] [address] OFFICE [facility] 2022-04-07 2022-04-07 [facility], [facility] 1.2.840.1 [id number] Univers 08:30:00 08:45:00 Visit Chasidy [facility] 350.1.13 .10 ity of [place] [id number] Juan Jose as DONTE?BLEA [id number] [facility] [address] [facility] OFFICE [facility] 2022-04-07 2022-04-07 Outpatient R CHASIDY [facility] [id number] Univers 08:30:00 08:30:[address] [facility] 2022-04-07 2022-04-07 Orders Doctor MONTANEZ 1.2.840.114 [id number] Univers 00:00:00 00:00:00 Only Unassigned, RONA [id number] ity of [place] [facility] 4.2.7.2.686 Juan Jose as [id number] [address] 2022-03-30 2022-03-30 Orders Doctor TARIK 1.2.840.114 [id number] Univers 00:00:00 00:00:00 Only Unassigned, RONA [id number] ity of [place] [facility] 4.2.7.2.686 Juan Jose as [id number] [address] 2022-03-28 2022-03-28 [facility] 1.2.840.114 [id number] Univers 00:00:00 00:00:00 [place] [id number] i ty [facility] [place] [facility] [place] [phone] [address] 2022-03-06 2022-03-06 Orders Doctor TARIK 1.2.840.114 [id number] Univers 00:00:00 00:00:00 Only Unassigned, RONA [id number] ity of [place] [facility] 4.2.7.2.686 Juan Jose as [id number] [address] 2022-02-28 2022-02-28 [facility] 1.2.840.114 [id number] Univers 00:00:00 00:00:00 [facility] HEALTH [id number] it y of [place] [facility] [id number] Juan Jose as DONTE?BLEA [id number] [address] MEDICAL OFFICE [facility] 2022-02-28 2022-02-28 Telephone [facility] 1.2.840.114 [id number] Univers 00:00:00 00:00:00 [place] SHAR[place] [id number] i ty [place] [facility] 4[place] [id number] [address] 2022-02-28 2022-02-28 Telephone [facility] 1.2.840.114 [id number] Univers 00:00:00 00:00:00 [facility] HEALTH [id number] it y of [place] 4.2.7.2.686 Juan Jose as DONTE?BLEA [id number] [address] MEDICAL OFFICE [facility] 2022-02-24 2022-02-24 Orders Doctor TARIK 1.2.840.114 [id number] Univers 00:00:00 00:00:00 Only Unassigned, RONA [id number] ity of [place] [facility] 4.2.7.2.686 Juan Jose as [id number] [address] 2022-02-21 2022-02-21 Telephone [facility] 1.2.840.114 [id number] [facility] 00:00:00 00:00:00 [facility] 350.1.13.10 it y of [place] 4.2.7.2.686 Juan Jose as DONTE?BLEA [id number] [address] OFFICE [facility] 2022-02-16 2022-02-[facility].840.114 [id number] [employer] 00:00:00 00:00:00 [facility] 350.1.13.10 it y of [place] 4.2.7.2.686 Juan Jose as DONTE?BLEA [phone] [address] OFFICE [facility] 2022-02-15 2022-02-15 Orders Doctor TARIK 1.2.840.114 [id number] [employer] 00:00:00 00:00:00 Only Unassigned, RONA 350.1.13.10 ity of [place] 4.2.7.2.686 Juan Jose as [phone] [address] 2022-02-14 2022-02-14 Telephone [facility] 1.2.840.114 [id number] Univers 00:00:00 00:00:00 Massiel HEALTH 350.1.13.10 it y of [place] 4.2.7.2.686 Juan Jose as DONTE?BLEA [phone] [address] OFFICE [facility] 2022-01-31 2022[facility]01-[facility].840.114 [id number] Univers 00:00:00 00:00:00 Massiel HEALTH 350.1.13.10 it y of [place] 4.2.7.2.686 Juan Jose as DONTE?BLEA [phone] [address] OFFICE [facility] 2022-01-05 2022-01-05 Orders Doctor TARIK 1.2.840.114 [id number] Univers 00:00:00 00:00:00 Only Unassigned, RONA 350.1.13.10 ity of [place] [facility] 4.2.7.2.686 Juan Jose as [phone] [address] 2022-01-04 2022-01-04 Refill [facility] 1.2.840.114 [id number] Univers 00:00:00 00:00:00 Massiel HEALTH 350.1.13.10 it y of [place] 4.2.7.2.686 Juan Jose as DONTE?BLEA [phone] [address] OFFICE [facility] 2021-12-20 2021-12-20 Telephone [facility] 1.2.840.114 [id number] Univers 00:00:00 00:00:00 Massiel HEALTH 350.1.13.10 it y of [place] 4.2.7.2.686 Juan Jose as DONTE?BLEA [phone] [address] 2021-12-16 2021-12-16 Telephone [facility] 1.2.840.114 [id number] Univers 00:00:00 00:00:00 Massiel HEALTH 350.1.13.10 it y of [place] 4.2.7.2.686 Juan Jose as DONTE?BLEA [phone] [address] OFFICE [facility] 2021-12-15 2021-12-15 Orders Doctor TARIK 1.2.840.114 [id number] Univers 00:00:00 00:00:00 Only Unassigned, RONA 350.1.13.10 ity of [place] [facility] 4.2.7.2.686 Juan Jose as [phone] [address] 2021-12-14 2021-12-14 Telephone [facility] 1.2.840.114 [id number] Univers 00:00:00 00:00:00 Massiel HEALTH 350.1.13.10 it y of [place] 4.2.7.2.686 Juan Jose as DONTE?BLEA [phone] [address] OFFICE [facility] 2021-11-22 2021-11-[address] [facility] [id number] [facility] 08:30:00 08:58:07 MASSIEL ity of [facility] 2021-11-22 2021-11-22 Office [facility] 1.2.840.114 [id number] Univers 08:30:00 08:58:07 Visit [facility] 350.1.13.10 it y of [place] 4.2.7.2.686 Juan Jose as DONTE?BLEA [phone] [address] OFFICE [facility] 2021-10-21 2021-10-21 Orders Doctor TARIK 1.2.840.114 [id number] Univers 00:00:00 00:00:00 Only Unassigned, RONA 350.1.13.10 ity of [place] [facility] 4.2.7.2.686 Juan Jose as [phone] [address] 2021-09-12 2021-09-12 Orders Doctor TARIK 1.2.840.114 [id number] Univers 00:00:00 00:00:00 Only Unassigned, RONA 350.1.13.10 ity of [place] [facility] 4.2.7.2.686 Juan Jose as [phone] [address] 2021-08-19 2021-08-19 Telephone [facility] 1.2.840.114 [id number] Univers 00:00:00 00:00:00 Mass[facility] HEALTH 350.1.13.10 it y of [place] 4.2.7.2.686 Juan Jose as DONTE?BLEA [phone] [address] OFFICE [facility] 2021-08-19 2021-08-19 Telephone [facility] 1.2.840.114 [id number] Univers 00:00:00 00:00:00 Mass[facility] HEALTH 350.1.13.10 it y of [place] 4.2.7.2.686 Juan Jose as DONTE?BLEA [phone] [facility] [address] MEDICAL OFFICE [facility] 2021-08-19 2021-08-19 Orders Doctor TARIK 1.2.840.114 [id number] Univers 00:00:00 00:00:00 Only Unassigned, RONA 350.1.13.10 ity of [place] [facility] 4.2.7.2.686 Juan Jose as [phone] [address] 2021-08-01 2021-08-01 Orders Doctor TARIK 1.2.840.114 [id number] Univers 00:00:00 00:00:00 Only Unassigned, RONA 350.1.13.10 ity of [place] [facility] 4.2.7.2.686 Juan Jose as [phone] [address] 2021-07-28 2021-07-28 Telephone [facility] 1.2.840.114 [id number] Univers 00:00:00 00:00:00 [facility] HEALTH 350.1.13.10 it y of [place] 4.2.7.2.686 Juan Jose as DONTE?BLEA [phone] [address] OFFICE [facility] 2021-07-28 2021-07-28 Telephone [facility] 1.2.840.114 [id number] Univers 00:00:00 00:00:00 [facility] HE[facility] 350.1.13.10 it y of [place] 4.2.7.2.686 Juan Jose as DONTE?BLEA [phone] [address] OFFICE [facility] 2021-07-08 2021-07-08 Orders Doctor TARIK 1.2.840.114 [id number] Univers 00:00:00 00:00:00 Only Unassigned, RONA 350.1.13.10 ity of [place] [facility] 4.2.7.2.686 Juan Jose as [phone] [address] 2021-06-23 2021-06-23 Telephone [facility] 1.2.840.114 [id number] Univers 00:00:00 00:00:00 Mass[facility] HEALTH 350.1.13.10 it y of [place] 4.2.7.2.686 Juan Jose as DONTE?BLEA [phone] [address] MEDICAL OFFICE BUILDING 2021-06-23 2021-06-23 Orders Doctor TARIK 1.2.840.114 [id number] Univers 00:00:00 00:00:00 Only Unassigned, RONA 350.1.13.10 ity of [place] [facility] 4.2.7.2.686 Juan Jose as [phone] [address] 2021-06-20 2021-06-20 Orders Doctor TARKI 1.2.840.114 [id number] Univers 00:00:00 00:00:00 Only Unassigned, RONA 350.1.13.10 ity of [place] [facility] 4.2.7.2.686 Juan Jose as [phone] [address] 2021-06-13 2021-06-13 Orders Doctor MONTANEZ 1.2.840.114 [id number] Univers 00:00:00 00:00:00 Only Unassigned, RONA 350.1.13.10 ity of [place] [facility] 4.2.7.2.686 Juan Jose as [phone] [address] 2021-05-02 2021-05-02 Orders Doctor MONTANEZ 1.2.840.114 [id number] Univers 00:00:00 00:00:00 Only Unassigned, RONA 350.1.13.10 ity of [place] [facility] 4.2.7.2.686 Juan Jose as [phone] [address] 2021-04-25 2021-04-25 Telephone Chasidy [facility] 1.2.840.114 [id number] Univers 00:00:00 00:00:00 [facility] 350.1.13.10 it y of [place] 4.2.7.2.686 Juan Jose as Donte?Blea [phone] [address] Medical Office Building 2021-04-21 2021-04-21 Orders Doctor TARIK Ayala.2.840.114 [id number] Univers 00:00:00 00:00:00 Only Unassigned, RONA 350.1.13.10 ity of [place] [facility] 4.2.7.2.686 Juan Jose as [phone] [address] 2021-04-12 2021-04-12 Telephone [facility] 1.2.881.550 [id number] Univers 00:00:00 00:00:00 Ariadna Morales 350.1.13.10 it[place] of [place] [phone] Nm dical nal 204 [facility] 2021-04-08 2021-04-08 Telephone [facility], [facility] 1.2.483.122 [id number] Univers 00:00:00 00:00:00 Ariadna A [place] 350.1.13.10 ity of [place] [phone] Nm dical nal 204 [facility] 2021-04-08 2021-04-08 Telephone [facility] 1.2.867.843 [id number] Univers 00:00:00 00:00:00 Ariadna Morales 350.1.13.10 ity of [place] [phone] Nm dical nal 204 [facility] 2021-04-06 2021-04-06 Outpatient R ANDERS, [facility] [id number] Univers 14:00:00 14:00:00 ARIADNA ity of [facility] 2021-04-06 2021-04-06 Corn Sheller Janine, Adc Lab Main [facility] 1.2.8 40.114 [id number] Univers 13:14:20 13:29:20 Visit Ariadna Quinteros 350.1.13.10 ity of [place] [phone] [facility] 353 [facility] 2021-04-06 2021-04-06 Orders Doctor TARIK 1.2.840.114 [id number] Univers 00:00:00 00:00:00 Only Unassigned, RONA 350.1.13.10 ity of [place] [facility] 4.2.7.2.686 Juan Jose as [phone] [address] 2021-04-05 2021-04-05 [facility] 1.2.905.473 [id number] Univers 00:00:00 00:00:00 Ariadna Nye [place] 350.1.13.10 ity of [place] [phone] Nm dical nal 204 [facility] 2021-03-28 2021-03-28 Orders Doctor TARIK 1.2.840.114 [id number] Univers 00:00:00 00:00:00 Only Unassigned, RONA 350.1.13.10 ity of [place] [facility] 4.2.7.2.686 Juan Jose as [phone] [address] 2021-03-01 2021-03-01 Orders Doctor TARIK 1.2.840.114 [id number] Univers 00:00:00 00:00:00 Only Unassigned, RONA 350.1.13.10 ity of [place] [facility] 4.2.7.2.686 Juan Jose as [phone] [address] 2021-02-20 2021-02-20 Orders Doctor TARIK 1.2.840.114 [id number] Univers 00:00:00 00:00:00 Only Unassigned, RONA 350.1.13.10 ity of [place] [facility] 4.2.7.2.686 Juan Jose as [phone] [address] 2021-02-18 2021-02-18 Telephone [facility] 1.2.840.114 [id number] [facility] 00:00:00 00:00:00 [facility] 350.1.13.10 it y of [place] 4.2.7.2.686 Juan Jose as Professio [phone] [facility] [address] [place] [facility] [address] One 2021-02-15 2021-02-15 Office [facility] 1.2.840.114 [id number] [facility] 09:56:14 10:11:14 Visit [facility] 350.1.13.10 it y of [place] 4.2.7.2.686 Juan Jose as Professio [phone] Nm dicma nal [address] [place] [address] One 2021-02-15 2021-02-15 [facility] [id number] Univers 10:00:00 10:00:00 MASSIEL ity of [facility] 2021-02-15 2021-02-15 [facility] 1.2.840.114 [id number] Univers 00:00:00 00:00:00 [facility] 350.1.13.10 it y of [place] 4.2.7.2.686 Juan Jose as Professio [phone] [facility] [address] One 2021-02-14 2021-02-14 Office [facility] 1.2.840.114 [id number] Univers 09:17:16 10:06:38 Visit Abiel Morales 350.1.13.10 i ty of [place] [facility] [phone] [facility] [address] [place] [address] 2021-02-14 2021-02-14 [facility] [id number] Univers 09:30:00 09:30:[address] [facility] 2021-02-03 2021-02-03 [facility] [id number] Univers 10:00:00 10:00:[address] [facility] 2021-02-03 2021-02-03 [facility] 1.2.840.114 [id number] Univers 09:08:12 09:38:12 Visit Room, [facility] HEALTH 350.1. 13.10 it[place] of [place].2.[place] [phone] [facility] Primary & [address] [facility] 2021-02-01 2021-02-01 Orders Doctor TARIK 1.2.840.114 [id number] Univers 00:00:00 00:00:00 Only Unassigned, RONA 350.1.13.10 ity of [place] [facility] 4.2.7.2.686 Juan Jose as [phone] [place] [address] [place] 2021-01-25 2021-01-25 Telephone [facility] 1.2.840.114 [id number] Univers 00:00:00 00:00:00 Massiel [facility] 350.1.13.10 it y of [place] 4.2.7.2.686 Juan Jose as Professio [phone] [facility] One 2021-01-21 2021-01-21 Office Chasidy [facility] 1.2.840.114 [id number] Univers 10:13:12 10:28:12 Visit [facility] 350.1.13.10 it y of [place] 4.2.7.2.686 Juan Jose as Professio [phone] [facility] 044 [facility] One 2021-01-21 2021-01-21 Outpatient R CHASIDY [facility] [id number] Univers 10:15:00 10:15:[address] [facility] 2021-01-20 2021-01-20 [facility] 1.2.840.114 [id number] Univers 07:59:43 09:24:52 Visit Abiel Morales 350.1.13.10 i ty of [place] [phone] [facility] 204 [facility] 2021-01-20 2021-01-20 [facility] [id number] Univers 08:15:00 08:15:[address] [facility] 2021-01-04 2021-01-04 Transition CorrinamariyaRoderick 1.2.840.114 [id number] Univers 00:00:00 00:00:00 of Care Toma Downing 350.1.13.10 i ty of [place].[address] [place] [phone] [facility] [address] 2021-01-04 2021-01-04 Orders Doctor TARIK 1.2.840.114 [id number] Univers 00:00:00 00:00:00 Only Unassigned, RONA 350.1.13.10 ity of [place] [facility] 4.2.7.2.686 Juan Jose [address] [phone] [facility] [address] 2020-12-23 2020-12-31 Inpatient X [facility] [id number] Univers 10:58:00 17:10:[address] [facility] 2020-12-23 2020-12-31 [facility] Yumiko Rider [facility] 1.2.840.11 [id number] Univers 10:58:00 17:10:00 Encounter Compa Qureshi 350.1.13.10 ity of [place] 4.2.7.2.686 [facility] [phone] [address] 2020-12-23 2020-12-23 Telephone Chasidy [facility] 1.2.840.114 [id number] [facility] 00:00:00 00:00:00 [facility] 350.1.13.10 it y of [place] 4.2.7.2.686 Juan Jose as Professio [phone] Nm dicma nal [address] [place] [address] Office [facility] One 2020-12-21 2020-12-21 Corn Sheller Lab, Adc Fam Pob I [facility] 1.2. 840.114 [id number] Univers 10:42:03 10:43:01 Visit Massiel Umaña [facility] 350.1.13 .10 ity of [place] 4.2.7.2.686 Juan Jose as Professio [phone] Nm dicma nal [address] [place] [address] One 2020-12-21 2020-12-21 Office Chasidy [facility] 1.2.840.114 [id number] Univers 10:07:48 10:41:18 Visit Massiel [facility] 350.1.13.10 it y of [place] 4.2.7.2.686 Juan Jose as Professio [phone] [facility] nal [address] [place] [address] One 2020-12-21 2020-12-21 Outpatient R CHASIDY [facility] [id number] Univers 10:15:00 10:15:[address] [facility] 2020-12-21 2020-12-21 Telephone Chasidy [facility] 1.2.840.114 [id number] Univers 00:00:00 00:00:00 [facility] 350.1.13.10 it y of [place] 4.2.7.2.686 Juan Jose as Professio [phone] Nm [address] 2020-12-20 2020-12-20 Outpatient R MARCELO [facility] [id number] Univers 17:20:00 17:20:00 QUOC [facility] 2020-02-24 2020-02-24 Corn Sheller 2, Adc Lab [facility] 1.2.840.114 [id number] Univers 09:36:01 09:51:01 Visit Massiel Umaña 350.1.1 3.10 ity of [place] [phone] [address] 2020-02-24 2020-02-24 [facility] [id number] Univers 09:45:00 09:45:00 MASSIEL [facility] 2020-02-23 2020-02-23 [facility] [id number] Univers 08:30:00 08:30:00 [facility] 2020-02-18 2020-02-18 Office [facility] 1.2.840.114 [id number] Univers 08:30:20 09:00:20 Visit Massiel Morales 350.1.13.10 i ty of [place] [phone] [address] 2020-02-18 2020-02-18 [facility] [id number] Univers 08:30:00 08:30:00 [facility] 2019-08-21 2019-08-21 Telephone [facility] 1.2.840.114 [id number] Univers 00:00:00 00:00:00 Massiel [facility] 350.1.13.10 it y of [place] 4.2.7.2.686 Juan Jose as Professio [phone] [address] 2019-08-20 2019-08-20 Office [facility] 1.2.840.114 [id number] Univers 15:27:36 15:42:36 Visit Massiel Arellano 350.1.13.10 it y of [place] 4.2.7.2.686 Juan Jose as Yeyo [phone] Nm dical nal [address] One Results This patient has no known results.
--- NOTE | 2023-03-16 19:27 | RAD REPORT ---
EXAM DESCRIPTION: RAD - Finger-Thumb Left - 03/16/2023 7:11 pm CLINICAL HISTORY: PAIN COMPARISON: <Comparisons> FINDINGS: Mild tuft fracture is seen involving the second finger. No dislocation.
[2023-03-16] MEDS ORDERED: LIDOCAINE 1% MPF 5 ML VIAL ONE (19:42)
[2023-03-16] MEDS ORDERED: BUPIVACAINE 0.5% PF 10 ML VIAL ONE (19:43)
--- NOTE | 2023-03-16 20:38 | EDPHYS ---
Physician Documentation [facility] Name: Jasson Craig Jr Age: 77 yrs Sex: Male : 1945 Arrival Date: 03/16/2023 Time: 17:57 Bed 18 Private MD: ED Physician Daren South HPI: 03/16 18:30 This 77 yrs old Male presents to ER via Ambulatory with complaints of Finger Injury. cp 18:30 The patient or guardian reports injury, a laceration, irregular. The complaints affect cp the distal phalanx left index finger. Context: The problem was sustained at home, resulted from injury after finger was smashed by garage door. 18:30 Onset: The symptoms/episode began/occurred just prior to arrival. Associated signs and cp symptoms: Pertinent positives: decreased sensation distally. Historical: - Allergies: 18:18 No Known Allergies; nj1 - PMHx: 18:18 Alzheimer's disease; Hypertensive disorder; BPH; nj1 - PSHx: 18:18 None; nj1 - Immunization history:: Client reports receiving the 2nd dose of the Covid vaccine, Last tetanus immunization: up to date. - Social history:: Smoking status: Patient denies any tobacco usage or history of. ROS: 18:35 Constitutional: Negative for body aches, chills, fever, poor PO intake. cp 18:35 Eyes: Negative for injury, pain, redness, and discharge. cp 18:35 Cardiovascular: Negative for chest pain. 18:35 Respiratory: Negative for cough, shortness of breath, wheezing. 18:35 MS/extremity: Positive for injury or acute deformity, laceration, pain, paresthesias, of the distal phalanx left index finger. 18:35 All other systems are negative. Exam: 18:40 Constitutional: The patient appears in no acute distress, alert, awake, well developed, cp well nourished. 18:40 Head/Face: Normocephalic, atraumatic. cp 18:40 Eyes: Periorbital structures: appear normal, Conjunctiva: normal, no exudate, no injection, Lids and lashes: appear normal, bilaterally. 18:40 ENT: External ear(s): are unremarkable, Nose: is normal, Mouth: Lips: moist, Oral mucosa: moist, Posterior pharynx: is normal, airway is patent, no erythema, no exudate. 18:40 Neck: ROM/movement: is normal, is supple, without pain, no range of motions limitations. 18:40 Chest/axilla: Inspection: normal. 18:40 Cardiovascular: Rate: normal, Rhythm: regular. 18:40 Respiratory: the patient does not display signs of respiratory distress, Respirations: normal, no use of accessory muscles. 18:40 Abdomen/GI: Inspection: abdomen appears normal. 18:40 Musculoskeletal/extremity: Extremities: grossly normal except: noted in the distal phalanx left index finger: deformity, laceration, tenderness, There is no evidence of decreased ROM, Perfusion: the extremity is normally perfused throughout, decreased sensation, Tendon exam: specific tendon testing normal through active and passive range of motion Nails: intact. Vital Signs: 18:15 BP 148 / 97; Pulse 90; Resp 18; Pulse Ox 99% ; Weight 83.91 kg; Height 5 ft. 11 in. ; nj1 Pain 3/10; 20:00 BP 139 / 95; Pulse 85; Resp 16; Pulse Ox 99% ; fu 20:15 BP 137 / 95; Pulse 81; Resp 18; Pulse Ox 99% ; fu 18:15 Body Mass Index 25.80 (83.91 kg, 180.34 cm) nj1 18:15 Pain Scale: Adult nj1 Laceration: 20:45 Wound Repair of 3.5cm ( 1.4in ) subcutaneous laceration to distal phalanx of left index cp finger. Irregularly shaped.. Distal neuro/vascular/tendon intact. Anesthesia: Digital block administered with 8 mls of Lido/Marcaine. Wound prep: Moderate cleansing by me, Wound irrigation by me. Skin closed with 8 5-0 Prolene using interrupted sutures and sterile technique. Dressed with Bacitracin, 4x4's. Patient tolerated well. MDM: 18:23 Patient medically screened. cp 19:30 Differential diagnosis: open fracture, closed fracture, contusion, simple laceration, cp nail avulsion. 20:37 Data reviewed: vital signs, nurses notes, radiologic studies, plain films. cp 20:37 Consideration of Admission/Observation Escalation of care including cp admission/observation considered. I considered the following discharge prescriptions or medication management in the emergency department Medications were administered in the Emergency Department. See MAR. Independent interpretation of the following test(s) in the Emergency Department X-Ray: My interpretation is images of left index finger show comminuted fracture of distal phalanx. Care significantly affected by the following chronic conditions: Hypertension. Counseling: I had a detailed discussion with the patient and/or guardian regarding: the historical points, exam findings, and any diagnostic results supporting the discharge/admit diagnosis, radiology results, the need for outpatient follow up, a hand specialist, to return to the emergency department if symptoms worsen or persist or if there are any questions or concerns that arise at home. Response to treatment: the patient's symptoms have markedly improved after treatment, and as a result, I will discharge patient. Special discussion: I discussed in detail with the patient the higher chance of wound infection based on his presenting history. 03/16 18:20 Order name: XRAY Finger-Thumb Left; Complete Time: 19:29 cp 03/16 19:29 Interpretation: Report reviewed. cp 03/16 19:23 Order name: Dressing - Wound; Complete Time: 19:35 cp 03/16 19:23 Order name: Gloves, Sterile; Complete Time: 20:56 cp 03/16 19:23 Order name: Setup Suture Tray; Complete Time: 19:35 cp 03/16 19:23 Order name: Wound Care; Complete Time: 20:43 cp 03/16 20:31 Order name: Finger Splint; Complete Time: 20:43 cp 03/16 20:31 Order name: Wound dressing; Complete Time: 20:43 cp Administered Medications: 20:00 Drug: Bupivacaine Infiltration (0.5 %) 10 ml Volume: 10 ml; Route: Infiltration; mb9 20:45 Drug: CeFAZolin IM 1 grams Route: IM; Site: left gluteus; mb9 20:57 Follow up: Response: No adverse reaction mb9 20:56 Drug: Lidocaine Infiltration (1 %) 10 ml {Note: administered by PA. Julian} fu Volume: 5 ml; Route: Infiltration; Disposition Summary: 03/16/23 20:38 Discharge Ordered Location: Home cp Problem: new cp Symptoms: have improved cp Condition: Stable cp Diagnosis - Displaced fracture of distal phalanx of left index finger, initial encounter for cp open fracture Followup: cp - With: Jeremy Crews MD - When: 2 - 3 days - Reason: Wound Recheck Discharge Instructions: - Discharge Summary Sheet cp - Finger Fracture, Adult cp Forms: - Medication Reconciliation Form cp - Thank You Letter cp - Antibiotic Education cp - Prescription Opioid Use cp - Patient Portal Instructions cp - Leadership Thank You Letter cp Prescriptions: - Cephalexin 500 mg Oral Capsule - take 1 capsule by ORAL route every 6 hours for 10 days; 40 capsule; Refills: 0, cp Product Selection Permitted - Ibuprofen 800 mg Oral Tablet - take 1 tablet by ORAL route every 8 hours As needed take with food; 30 tablet; cp Refills: 0, Product Selection Permitted Signatures: Dispatcher [employer] EDMS Paul Traore PA PA cp Frank James, RN RN Soha Garza RN RN mb9 Merary Zambrano RN RN nj1 Corrections: (The following items were deleted from the chart) 03/17 14:50 03/16 20:15 Wound Repair of 3.5cm ( 1.4in ) subcutaneous laceration to distal phalanx cp of left index finger. Irregularly shaped.. Distal neuro/vascular/tendon intact. Anesthesia: Digital block administered with 8 mls of Lido/Marcaine. Wound prep: Moderate cleansing by me, Wound irrigation by me. Skin closed with 8 5-0 Prolene using interrupted sutures and sterile technique. Dressed with Bacitracin, 4x4's. Patient tolerated well. cp
--- NOTE | 2023-03-16 20:38 | ER ---
Nurse's Notes [facility] Name: Jasson Craig Jr Age: 77 yrs Sex: Male : 1945 Arrival Date: 03/16/2023 Time: 17:57 Bed 18 Private MD: Diagnosis: Displaced fracture of distal phalanx of left index finger, initial encounter for open fracture Presentation: 03/16 18:15 Chief complaint: Patient states: I was closing the garage door and left index finger nj1 got caught up in there. Coronavirus screen: Vaccine status: Patient reports receiving the 2nd dose of the covid vaccine. Ebola Screen: Patient denies travel to an Ebola-affected area in the 21 days before illness onset. Initial Sepsis Screen: Does the patient meet any 2 criteria? No. Patient's initial sepsis screen is negative. Does the patient have a suspected source of infection? No. Patient's initial sepsis screen is negative. Risk Assessment: Do you want to hurt yourself or someone else? Patient reports no desire to harm self or others. Onset of symptoms was March 16, 2023. 18:15 Method Of Arrival: Ambulatory [facility] 18:15 Acuity: SERVANDO 3 [facility] Triage Assessment: 18:43 Injury Description: Crush injury Laceration. ap3 Historical: - Allergies: 18:18 No Known Allergies; nj1 - PMHx: 18:18 Alzheimer's disease; Hypertensive disorder; BPH; nj1 - PSHx: 18:18 None; nj1 - Immunization history:: Client reports receiving the 2nd dose of the Covid vaccine, Last tetanus immunization: up to date. - Social history:: Smoking status: Patient denies any tobacco usage or history of. Screenin:36 [facility] ED Fall Risk Assessment (Adult) History of falling in the last 3 months, ap3 including since admission No falls in past 3 months (0 pts). Abuse screen: Denies threats or abuse. Nutritional screening: No deficits noted. Tuberculosis screening: No symptoms or risk factors identified. Assessment: 18:42 General: Appears in no apparent distress. Behavior is calm, cooperative. Pain: ap3 Complains of pain in dorsal aspect of distal phalanx of left index finger and left index fingernail Pain began suddenly. Neuro: Level of Consciousness is awake, alert, obeys commands, Oriented to person, place, time, situation. Cardiovascular: Patient's skin is warm and dry. Respiratory: Airway is patent Respiratory effort is even, unlabored, Respiratory pattern is regular, symmetrical. Derm: Wound noted dorsal aspect of distal phalanx of left index finger. Musculoskeletal: Reports pain in dorsal aspect of distal phalanx of left index finger and left index fingernail. 19:15 Reassessment: No changes from previously documented assessment. Patient is alert, fu oriented x 3, equal unlabored respirations, skin warm/dry/pink. Vital Signs: 18:15 BP 148 / 97; Pulse 90; Resp 18; Pulse Ox 99% ; Weight 83.91 kg; Height 5 ft. 11 in. ; nj1 Pain 3/10; 20:00 BP 139 / 95; Pulse 85; Resp 16; Pulse Ox 99% ; fu 20:15 BP 137 / 95; Pulse 81; Resp 18; Pulse Ox 99% ; fu 18:15 Body Mass Index 25.80 (83.91 kg, 180.34 cm) nj1 18:15 Pain Scale: Adult [facility] ED Course: 17:57 Patient arrived in ED. rg4 17:59 aPul Traore PA is PHCP. cp 17:59 Daren South MD is Attending Physician. cp 18:18 Triage completed. nj1 18:21 Arm band placed on right wrist. nj1 18:36 Stephanie Duarte, NISHA is Primary Nurse. ap3 18:37 Bed in low position. Call light in reach. Side rails up X2. Pulse ox on. NIBP on. Door ap3 closed. Noise minimized. 19:04 xray at bedside. ap3 19:13 XRAY Finger-Thumb Left In Process Unspecified. EDMS 20:00 Assist provider with laceration repair on left index fingernail Set up tray. Performed fu by Paul BENÍTEZ Patient tolerated well. 20:37 Jeremy Crews MD is Referral Physician. cp 20:58 Patient did not have IV access during this emergency room visit. fu Administered Medications: 20:00 Drug: Bupivacaine Infiltration (0.5 %) 10 ml Volume: 10 ml; Route: Infiltration; mb9 20:45 Drug: CeFAZolin IM 1 grams Route: IM; Site: left gluteus; mb9 20:57 Follow up: Response: No adverse reaction mb9 20:56 Drug: Lidocaine Infiltration (1 %) 10 ml {Note: administered by JACKELIN Jordan.} fu Volume: 5 ml; Route: Infiltration; Outcome: 20:38 Discharge ordered by . cp 20:57 Discharged to home ambulatory, with family. mb9 20:57 Condition: stable 20:57 Discharge instructions given to patient, Instructed on discharge instructions, follow up and referral plans. Demonstrated understanding of instructions, follow-up care, medications, Prescriptions given X 2. 20:57 Patient left the ED. mb9 Signatures: Dispatcher [employer] EDMS Paul Traore PA PA cp Garcia, Rubi rg4 Frank James, RN RN Stephanie Garcia RN RN [email or web address] Soha Escobar RN RN mb9 Merary Zambrano, RN RN nj1 Corrections: (The following items were deleted from the chart) 18:21 18:15 Pulse 90bpm; Resp 18bpm; Pulse Ox 99%; 83.91 kg; Height 5 ft. 11 in.; BMI: 25.8; nj1 Pain 10/13, Adult; nj1
[2023-03-16] MEDS ORDERED: LIDOCAINE 1% MPF 2 ML AMPULE ONE (20:56)
[2023-03-16] MEDS ORDERED: CEFAZOLIN SODIUM 1 GM/VIAL ONE (20:56)
[2023-03-16 21:06] VITALS: BP 148/97; O2SAT 99
== END 2023-03-16 20:57 | disposition home or self-care (01) ==
LOC: ER 17:57
PROC: 0HQGXZZ Repair Left Hand Skin, External Approach (ICD-10-PCS; principal; 2023-03-16)
DX: S62.631B Displaced fracture of distal phalanx of left index finger, initial encounter for open fracture (principal); G30.9 Alzheimer's disease, unspecified; F02.80 Dementia in other diseases classified elsewhere, unspecified severity, without behavioral disturbance, psychotic disturbance, mood disturbance, and anxiety
CPT/HCPCS: 73140; 96372; 99284; 12002; J2001; J0690